=== PATIENT | male | born 1935 | race Caucasian/White ===

== ENCOUNTER 2017-04-30 21:39 | Inpatient (IN) | payer MEDICARE, BC ==
[~2017-04-30] VITALS: Ht 190.5 cm; Wt 65.9 kg
[2017-04-30 22:48] LABS: BASOPHILS 0.1 % (0-2); EOSINOPHILS 0.6 % (0-7); HEMATOCRIT 40.3 % (42.0-54.0); HEMOGLOBIN 13.1 g/dL (13.5-17.5); IMMATURE GRANULOCYTES 0.3 % (0-5); LYMPHOCYTES 7.9 % (15-50); MCH 27.8 pg (26.0-34.0); MCHC 32.5 g/dL (31.0-37.0); MCV 85.4 fL (80.0-100.0); MEAN PLATELET VOLUME 10.6 fL (7.4-10.4); MONOCYTES 7.7 % (2-11); NEUTROPHILS 83.4 % (40-80); PLATELET COUNT 188 10x3/uL (130-400); RBC 4.72 10x6/uL (4.20-6.10); RDW 14.6 % (11.5-14.5); WBC 6.9 10x3/uL (4.8-10.8)
[2017-04-30 23:15] LABS: ALKALINE PHOSPHATASE 62 U/L (46-116); ALT (SGPT) 16 U/L (10-68); BILIRUBIN - TOTAL 0.42 mg/dL (0.2-1.3); CALCIUM 8.7 mg/dL (8.5-10.1); CARBON DIOXIDE 32.2 mmol/L (21.0-32.0); CKMB 5.4 U/L (0.0-3.6); CREATINE KINASE 240 UL (21-232); GLUCOSE 157 mg/dL (74-106); PROTEIN - SERUM 6.2 g/dL (6.4-8.2); UREA NITROGEN 15 mg/dL (7-18); eGFR NON AFRICAN AMERICAN 76 mL/min (90-120)
[2017-04-30 23:16] LABS: TROPONIN-I < 0.017 ng/mL (0.000-0.060)
[2017-04-30 23:25] LABS: CALC OSMOLALITY 279 mosm/kg (275-300); CHLORIDE - SERUM 101 mmol/L (98-107); POTASSIUM - SERUM 3.8 mmol/L (3.5-5.1); SODIUM 138 mmol/L (136-145)
[2017-04-30 23:41] LABS: APPEARANCE CLEAR (CLEAR); BILIRUBIN NEGATIVE (NEGATIVE); COLOR STRAW (YELLOW); GLUCOSE 250 mg/dL (NEGATIVE); KETONE NEGATIVE (NEGATIVE); LEUKOCYTE ESTERASE NEGATIVE (NEGATIVE); NITRITE NEGATIVE (NEGATIVE); PROTEIN 1+ mg/dL (NEGATIVE); SPECIFIC GRAVITY 1.005 (1.005-1.020); UROBILINOGEN NORMAL (NORMAL)
[2017-04-30 23:44] LABS: BACTERIA FEW /hpf (NONE SEEN); EPITHELIAL CELLS 0-5 /hpf (0-5); RED CELLS - URINE 0-5 /hpf (0-5); WHITE CELLS - URINE 0-5 /hpf (0-5)
[2017-05-01] VITALS (9 sets, daily range): BP systolic 104–163; BP diastolic 45–72; Ht 190.5 cm; Wt 65.9 kg
--- NOTE | 2017-05-01 03:00 | NUR ---
PT RECEIVED TO ROOM CV2 FROM ER WITH DX OF HYPOGLEMIA AND ALTERED MENTAL STATUS. PT SITTING UP IN BED ALERT CHEERFUL AND ONLY MILD CONFUSION NOTED. FSBS JUST PRIOR TO TRANSPORTING TO CVICU 76. INITIAL ADMISSION ASSESSMENT AND HISTORY DONE. PT A FAIR HISTORIAN. PT ORIENTATED TO ROOM AND CALL LIGHT LEFT IN REACH. PT CONCERNED ABOUT WILL ATTEMPT TO CALL AND INFORM HER OF ADMISSION
--- NOTE | 2017-05-01 04:45 | NUR ---
SPOKE WITH [facility] AND OBTAINED EMERGENCY CONTACT INFORMATION. INFORMED PT SEES DR. FREDI DEVINE OF [facility] IN [place] [phone]. CALL PLACEDT TO JEYSON, OLDEST SON OF PT'S AND UPDATED HIM ON PT'S CONDITION. 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
--- NOTE | 2017-05-01 07:15 | NUR ---
REPORT RECIEVED FROM DISTRICT MANAGER PRIMARY CARE SALES NURSE. PT RESTING IN BED QUIETLY. NO S/SX OF ACUTE DISTRESS NOTED AT THIS TIME. VSS. FULL ASSESSMENT COMPLETE PER FLOWSHEET. CALL LIGHT IN REACH. BED IN LOW POSITION.
[2017-05-01 08:58] LABS: MAGNESIUM - SERUM 1.6 mg/dL (1.8-2.4)
--- NOTE | 2017-05-01 12:00 | NUR ---
AT BEDSIDE FOR VISITATION.
--- NOTE | 2017-05-01 13:00 | NUR ---
DIETARY AT BEDSIDE.
--- NOTE | 2017-05-01 16:30 | NUR ---
PT ASSISTED UP IN BED FOR DINNER. DINNER TRAY PLACED ON BEDSIDE TABLE. DENIES FURTHER NEEDS. WILL CONT TO ASSESS.
--- NOTE | 2017-05-01 18:00 | NUR ---
22G IV STARTED TO RIGHT FA. PT PULLED OUT PREVIOUS IV TO LEFT FA. CATH WAS INTACT.
--- NOTE | 2017-05-01 19:45 | NUR ---
RECIEVED PATIENT VIA WHEELCHAIR WITH NURSE FROM ICU. PATIENT HAS A VARGAS CATHETER. WITH ICU NURSE ON ONE SIDE AND MYSELF ON THE OTHER SIDE OF THE PATIENT, ASSISTED PATIENT AMBULATING FROM THE WHEELCHAIR TO THE BED. GAIT IS UNSTEADY. PATIENT STATED HE HAS TO URINATE, REMINDED PATIENT THAT HE HAS A VARGAS CATHETER AND SHOWED HIM THE URINE IN THE TUBING AND COLLECTION BAG. PATIENT VERBALIZED UNDERSTANDING. PATIENT IS DISORIENTED TO PLACE AND SITUATION. PATIENT DOES KNOW THE YEAR, AND THAT HE IS IN [place], WELL BEING ORIENTED TO SELF. PATIENT'S SPEECH IS CLEAR, AND HE TOLD ME STORIES OF HIS PAST WITH GREAT DETAIL. HE EXPLAINED WHY HIS SON MADE HIM AND HIS MOVE TO [place]. PATIENT DENIES PAIN AND NEEDS AT THIS TIME. PATIENT IS ON ROOM AIR. SHOWED PATIENT HOW TO USE THE CALL LIGHT, PATIENT DEMONSTRATED UNDERSTANDING. BED ALARM ON. REMINDED PATIENT NOT TO GET OUT OF THE BED WITHOUT ASSISTANCE. PATIENT VERBALIZED UNDERSTANDING. TURNED THE TV ON. PATIENT CHANGING THE CHANNELS. DOOR OPEN.
--- NOTE | 2017-05-01 23:21 | NUR ---
PATIENT IS RESTING QUIETLY WITH EYES CLOSED. BUILT-IN BED ALARM KEEPS MALFUNCTIONING AND GOING OFF WHILE PATIENT IS NOT EVEN MOVING IN THE BED, HE IS SLEEPING. ATTACHED A BOX ALARM TO PATIENT'S GOWN AND TURNED IT ON. TURNED OFF THE BUILT-IN BED ALARM.
[2017-05-02] VITALS (7 sets, daily range): BP systolic 100–167; BP diastolic 57–74
--- NOTE | 2017-05-02 00:50 | NUR ---
BOX ALARM WENT OFF, WENT IN ROOM, PATIENT SITTING UP ON THE SIDE OF THE BED. STATED HE IS GOING TO THE BATHROOM. WITH ASSIST FROM ANOTHER NURSE, ASSISTED PATIENT AMBULATING TO THE BATHROOM. PATIENT DID WELL, REQUIRING MINIMAL ASSIST. PATIENT SAT DOWN ON THE COMMODE AND STARTED TO MESS WITH THE CATHETER, ASKING "WHAT IS THIS DOWN HERE?" EXPLAINED TO PATIENT WHAT IT IS AND NOT TO TOUCH IT. PATIENT VERBALIZED UNDERSTANDING. PUT A BLAIR MAT ALARM ON PATIENT'S BED AND ATTACHED IT TO A GREEN BLAIR BOX ALARM. CHECKED FUNCTIONING, IT IS FUNCTIONING. THE OTHER NURSE REMAINED WITH PATIENT THEN SHE ASSISTED HIM BACK TO BED. HE DID NOT HAVE A BOWEL MOVEMENT. I WENT BACK IN THE ROOM WHEN PATIENT WAS BACK IN BED. I PUT A VARGAS CATHETER STAT LOCK ON LEFT LEG AND SECURED VARGAS CATHETER. BLAIR MAT ALARM IS ON. PATIENT STATED "SO NEXT TIME I NEED TO GET UP I JUST PUSH THIS BUTTON RIGHT HERE AND WAIT?" PATIENT HOLDING THE CALL LIGHT IN HIS HAND. I TOLD HIM HE IS CORRECT. ASSISTED PATIENT GETTING HIS HEARING AIDS TURNED OFF AND PUT THEM IN A NEW DENTURE CUP, PLACED THE DENTURE CUP ON THE NIGHTSTAND. PATIENT DENIES FURTHER NEEDS AT THIS TIME.
[2017-05-02 05:55] LABS: BASOPHILS 0.4 % (0-2); EOSINOPHILS 1.8 % (0-7); HEMATOCRIT 46.1 % (42.0-54.0); HEMOGLOBIN 15.2 g/dL (13.5-17.5); IMMATURE GRANULOCYTES 0.1 % (0-5); LYMPHOCYTES 18.7 % (15-50); MCH 28.5 pg (26.0-34.0); MCV 86.3 fL (80.0-100.0); MEAN PLATELET VOLUME 10.9 fL (7.4-10.4); PLATELET COUNT 197 10x3/uL (130-400); RBC 5.34 10x6/uL (4.20-6.10); WBC 6.8 10x3/uL (4.8-10.8)
[2017-05-02 06:21] LABS: CALC OSMOLALITY 281 mosm/kg (275-300); CALCIUM 8.8 mg/dL (8.5-10.1); CARBON DIOXIDE 28.5 mmol/L (21.0-32.0); CHLORIDE - SERUM 104 mmol/L (98-107); GLUCOSE 114 mg/dL (74-106); SODIUM 140 mmol/L (136-145); UREA NITROGEN 17 mg/dL (7-18); eGFR NON AFRICAN AMERICAN 76 mL/min (90-120)
[2017-05-02 06:30] LABS: POTASSIUM - SERUM 4.5 mmol/L (3.5-5.1)
--- NOTE | 2017-05-02 07:25 | NUR ---
ASSESSMENT PER FLOW SHEET.PT WITHOUT DISTRESS..FALL PREVENTION IN PLACE WITH BLAIR MAT ON AND FUNTIONING.DOOR OPEN TO MONITOR
[2017-05-02] MEDS ORDERED: BAYER CHEWABLE81 MG PO (16:21)
[2017-05-02] MEDS ORDERED: LOPRESSOR25 MG PO (16:21)
[2017-05-02] MEDS ORDERED: VITAMIN D250000 UNIT PO (16:22)
[2017-05-02] MEDS ORDERED: LOVASTATIN40 MG PO (16:23)
[2017-05-02] MEDS ORDERED: LISINOPRIL-HCTZ1 T13 PO (16:27)
[2017-05-02] MEDS ORDERED: GLYBURIDE2.5 MG PO (16:28)
--- NOTE | 2017-05-02 17:30 | NUR ---
CALL TO [facility] TASHIA TO CLARIFY METFORMIN DOSE. DOSE METFORMIN 1000 MG BID.
[2017-05-02] MEDS ORDERED: GLUCOPHAGE1000 MG PO (17:34)
[2017-05-02] MEDS ORDERED: PRILOSEC10 M1 PO (17:36)
[2017-05-02] MEDS ORDERED: ARICEPT5 MG PO (17:36)
[2017-05-02] MEDS ORDERED: FISH OIL 1,0001 CA1 PO (17:36)
--- NOTE | 2017-05-02 18:44 | NUR ---
REMIANS WITHOUT NEEDS,WITHOUT DISTSRESS. STILL HAS CONFUSION.WITHOUT CHANGE FROM INITIAL SHIFT ASSESSMENT.CONT PLAN OF CARE
--- NOTE | 2017-05-02 20:26 | NUR ---
FSBS 188 PAGED KODY LIND TO ADDRESS THE IVF.
--- NOTE | 2017-05-02 20:30 | NUR ---
SHE SAID TO STOP HIS IVF.
--- NOTE | 2017-05-02 20:40 | NUR ---
STOPPED IVF. FLUSHED IV WITH SALINE TO SALINE LOCK.
--- NOTE | 2017-05-02 22:15 | NUR ---
ASSISTED PATIENT UP TO THE BATHROOM. PATIENT SAT ON THE TOILET, PASSED GAS, NO STOOL. ASSISTED PATIENT BACK TO BED. BLAIR MAT ALARM ON. CALL LIGHT IN REACH. REMINDED PATIENT TO PUSH CALL LIGHT FOR ASSISTANCE. PATIENT VERBALIZED UNDERSTANDING. BED RAILS UP X'S 2. HEARING AIDS OUT, AND TURNED OFF, IN DENTURE CUP WITH LID ON SITTING ON NIGHT STAND.
[2017-05-03 00:19] VITALS: BP 148/65
--- NOTE | 2017-05-03 01:05 | NUR ---
PATIENT STOOD UP, BLAIR ALARM WENT OFF. OUTSOLES CHANNEL OPENER ENTERED ROOM AND INSTRUCTED PATIENT TO SIT BACK DOWN, I ENTERED RIGHT BEHIND HER. PATIENT SAT DOWN. PATIENT PULLED STAT LOCK OFF OF LEG. PATIENT STATED "I NEED TO GO PEE." TOLD PATIENT HE HAS A CATHETER. EXPLAINED TO PATIENT WHAT A VARGAS CATHETER IS AND HOW IT WORKS. SHOWED HIM HIS URINE IN THE COLLECTION BAG. PATIENT VERBALIZED UNDERSTANDING. PATIENT VERBALIZED THAT HE THOUGHT IT WAS MORNING, TOLD PATIENT IT IS 1AM. HE SAID "OH WELL I BETTER GET BACK TO SLEEP THEN."
--- NOTE | 2017-05-03 01:24 | NUR ---
PATIENT PUSHED CALL LIGHT, HE ASKED "CAN I PUT MY SHORTS ON WITH THOSE ON MY LEGS?" (TALKING ABOUT THE SCDS) I STATED "NO. REMEMBER IT IS NOT TIME TO GET DRESSED YET." HE STATED "OH YEAH THAT'S RIGHT. IT IS BEDTIME." CHECKED PATIENT'S BLOOD SUGAR, 99. GAVE PATIENT A CUP OF APPLE JUICE AND A COUPLE SANKET CRACKERS. HE SAT UP AND ATE HIS SNACK. NOW LAYING BACK DOWN. BLAIR MAT ALARM ON. CALL LIGHT IN REACH. BED RAILS UP X'S 2.
--- NOTE | 2017-05-03 03:31 | NUR ---
RESTING QUIETLY WITH EYES CLOSED. BLAIR MAT ALARM ON.
[2017-05-03 03:51] VITALS: BP 149/64
[2017-05-03 06:31] LABS: ALBUMIN 2.7 g/dL (3.4-5.0); ALKALINE PHOSPHATASE 58 U/L (46-116); ALT (SGPT) 16 U/L (10-68); BILIRUBIN - TOTAL 0.39 mg/dL (0.2-1.3); CALC OSMOLALITY 279 mosm/kg (275-300); CALCIUM 8.9 mg/dL (8.5-10.1); CARBON DIOXIDE 28.3 mmol/L (21.0-32.0); CHLORIDE - SERUM 103 mmol/L (98-107); CREATININE - SERUM 0.9 mg/dL (0.6-1.3); GLUCOSE 116 mg/dL (74-106); POTASSIUM - SERUM 4.2 mmol/L (3.5-5.1); PROTEIN - SERUM 6.1 g/dL (6.4-8.2); SODIUM 139 mmol/L (136-145); UREA NITROGEN 15 mg/dL (7-18); eGFR NON AFRICAN AMERICAN 86 mL/min (90-120)
[2017-05-03 07:09] LABS: BASOPHILS 0.6 % (0-2); EOSINOPHILS 2.1 % (0-7); HEMOGLOBIN 15.2 g/dL (13.5-17.5); IMMATURE GRANULOCYTES 0.1 % (0-5); LYMPHOCYTES 19.7 % (15-50); MCHC 34.5 g/dL (31.0-37.0); MEAN PLATELET VOLUME 11.1 fL (7.4-10.4); MONOCYTES 10.2 % (2-11); NEUTROPHILS 67.3 % (40-80); PLATELET COUNT 203 10x3/uL (130-400); RBC 5.06 10x6/uL (4.20-6.10); RDW 14.9 % (11.5-14.5); WBC 6.7 10x3/uL (4.8-10.8)
--- NOTE | 2017-05-03 07:20 | NUR ---
ASSESSMENT PER FLOW SHEET.PT WITHOUT DISTRESS.CONFUSION AT TIMES.REMAINS WITHOUT BREAKDOWN.FALL PEVENTION IN PLACE.
[2017-05-03 08:25] VITALS: BP 113/54
--- NOTE | 2017-05-03 11:31 | NUR ---
CM REASSESSMENT NOTE: PATIENT IS DISCHARGING BACK TO [place] TO [facility] TODAY BY PREETI RUST.
--- NOTE | 2017-05-03 12:03 | NUR ---
VARGAS DCD WITH 500 CC OF URINE IN BAG.URINAL TO PT.
[2017-05-03 12:21] VITALS: BP 118/61
--- NOTE | 2017-05-03 14:01 | NUR ---
HAS VOIDED 100CC OF URINE IN URINAL
--- NOTE | 2017-05-03 14:22 | NUR ---
CALL TO [facility],SPOKE WITH TASHIA
--- NOTE | 2017-05-03 15:49 | NUR ---
IV DCD WITH CATH INTACT.
--- NOTE | 2017-05-03 15:53 | NUR ---
STAFF HERE FROM [facility].PT LEFT UNIT VIA WHEELCHAIR FOR TRANSPORT TO [facility]
== END 2017-05-03 15:54 | disposition home or self-care (01) | DRG 639 ==
LOC: D.ER 21:39 → D.MS 05-01 01:00 → D.CVICU 05-01 01:00 → D.MS 05-01 19:53
PROVIDERS: Emergency Medicine; ADMIT Family Medicine
DX: E11.649 Type 2 diabetes mellitus with hypoglycemia without coma (principal); I10 Essential (primary) hypertension; R00.1 Bradycardia, unspecified; F03.90 Unspecified dementia, unspecified severity, without behavioral disturbance, psychotic disturbance, mood disturbance, and anxiety; Z79.4 Long term (current) use of insulin

== ENCOUNTER 2017-05-07 13:07 | Emergency (ER) | payer MEDICARE, BC ==
[2017-05-01 13:46] VITALS: BMI 17.1
[~2017-05-07 13:07] MED LIST: ARICEPT5 MG PO; BAYER CHEWABLE81 MG PO; FISH OIL 1,0001 CA1 PO; GLUCOPHAGE1000 MG PO; GLYBURIDE2.5 MG PO; LISINOPRIL-HCTZ1 T13 PO; LOPRESSOR25 MG PO; LOVASTATIN40 MG PO; PRILOSEC10 M1 PO; VITAMIN D250000 UNIT PO
[2017-05-07 15:13] LABS: BASOPHILS 0.6 % (0-2); EOSINOPHILS 0.8 % (0-7); HEMOGLOBIN 13.7 g/dL (13.5-17.5); IMMATURE GRANULOCYTES 0.2 % (0-5); LYMPHOCYTES 14.5 % (15-50); MCH 27.8 pg (26.0-34.0); MCHC 32.6 g/dL (31.0-37.0); MCV 85.4 fL (80.0-100.0); MEAN PLATELET VOLUME 10.3 fL (7.4-10.4); MONOCYTES 5.4 % (2-11); NEUTROPHILS 78.5 % (40-80); PLATELET COUNT 191 10x3/uL (130-400); RBC 4.92 10x6/uL (4.20-6.10); RDW 14.7 % (11.5-14.5); WBC 5.2 10x3/uL (4.8-10.8)
[2017-05-07 15:33] LABS: ALBUMIN 3.3 g/dL (3.4-5.0); ALKALINE PHOSPHATASE 77 U/L (46-116); ALT (SGPT) 16 U/L (10-68); CALC OSMOLALITY 290 mosm/kg (275-300); CALCIUM 8.8 mg/dL (8.5-10.1); CARBON DIOXIDE 33.6 mmol/L (21.0-32.0); CHLORIDE - SERUM 102 mmol/L (98-107); CREATININE - SERUM 1.2 mg/dL (0.6-1.3); GLUCOSE 149 mg/dL (74-106); POTASSIUM - SERUM 3.8 mmol/L (3.5-5.1); PROTEIN - SERUM 6.9 g/dL (6.4-8.2); SODIUM 142 mmol/L (136-145); UREA NITROGEN 27 mg/dL (7-18); eGFR NON AFRICAN AMERICAN 62 mL/min (90-120)
[2017-05-07 15:42] LABS: CHOL - HDL RATIO 2.2 ratio (2.3-4.9); CHOLESTEROL, TOTAL 138 mg/dL (0-200); CKMB 1.8 U/L (0.0-3.6); CREATINE KINASE 79 UL (21-232); HDL CHOLESTEROL 63 mg/dL (32-96); LDL CHOLESTEROL 58 mg/dL (0-100); LDL-HDL RATIO 0.9 ratio (1.5-3.5); TRIGLYCERIDE 86 mg/dL (30-200)
[2017-05-07 15:52] LABS: TROPONIN-I < 0.017 ng/mL (0.000-0.060)
== END 2017-05-07 16:34 | disposition home or self-care (01) ==
LOC: D.ER 13:07
PROVIDERS: Emergency Medicine
DX: I20.8 Other forms of angina pectoris (principal); R07.9 Chest pain, unspecified; R00.1 Bradycardia, unspecified; E11.9 Type 2 diabetes mellitus without complications; K21.9 Gastro-esophageal reflux disease without esophagitis; I10 Essential (primary) hypertension; Z85.828 Personal history of other malignant neoplasm of skin; R00.2 Palpitations; I44.7 Left bundle-branch block, unspecified

== ENCOUNTER 2017-05-17 12:18 | Observation (INO) | payer MEDICARE, BC ==
[~2017-05-17] VITALS: Ht 188 cm; Wt 80.0 kg
--- NOTE | ~2017-05-17 | HEMODYNAMI ---
PATIENT:DICK LARSON MEDICAL RECORD: [id number] : 37 LOCATION:[address] ADMISSION DATE: 05/17/17 Generatedon:05/18/20179:35 Patient name: DICK LARSON Patient #: [id number] SSN: : 1935 Date of study: 05/18/2017 Page: Of Hemodynamic Procedure Report Patient Data Patient Demographics Procedure consent was obtained First Name: DICK Gender: Male Last Name: MARSHA : 1935 Patient #: [id number] Age: 81 year(s) Race: Unknown Additional ID: [id number] Contact details Address: [address] [place] [address] State: [place] City: [facility] Zip code: [address] Past Medical History Allergies: No known allergies Admission Admission Data Admission Date: 05/17/2017 Admission Time: 15:50 Room #: 2123 Height (in.): 74 BSA: 2.06 (m2) Height (cm.): 187.96 BMI: 22.64 (kg/m2) Weight (lbs.): 176.37 Weight (kg.): 80 Lab Results Lab Result Date: 05/18/2017 Lab Result Time: 0:00 Biochemistry Name Units Result Min Max BUN mg/dl 27 --(----)-* 7 18 CK-MB ng/ml 2.1 --(--*-)-- 0 3.6 Creatinine mg/dl 1.4 --(----)*- 0.6 1.3 Creatinine l 84 --(-*--)-- 21 215 Kinase CBC Name Units Result Min Max Hemoglobin g/dl 13.1 -*(----)-- 13.5 17.5 Procedure Procedure Types Cath Procedure Diagnostic Procedure [facility] w/Coronaries Procedure Description Procedure Date Procedure Date: 05/18/2017 Procedure Start Time: 9:14 Procedure End Time: 9:34 Procedure Staff Name Function George Beckham MD Performing Physician Shahab Gillette RT Scrub Hector Willams RN Nurse Rocio Phillips RT Monitor Procedure Data Cath Procedure Fluoroscopy Diagnostic fluoroscopy Total fluoroscopy Time: 2.5 time: 2.5 min min Diagnostic fluoroscopy Total fluoroscopy dose: 356 dose: 356 mGy mGy Contrast Material Contrast Material Type Amount (ml) Isovue 300 54 Entry Location Entry Primary Successful Side Size Upsize Upsize Entry Closure Succes sful Closure Location (Fr) 1 (Fr) 2 (Fr) Remarks Device Remarks Femoral Right 4 Fr 5 Fr artery Estimated blood loss: 10 ml Diagnostic catheters Device Type Used For End Catheter Placement Cordis 5Fr JL 4.0 Catheter (MP) Cordis 5Fr 3DRC Catheter Procedure (MP) Cordis 5Fr Pigtail Ventriculography Catheter (MP) Procedure Complications No complications Procedure Medications Medication Administration Route Dosage Oxygen NC 2 l/min Lidocaine 2% added to field 20 Heparin Flush Bag added to field 2 bags (1000units/500ml NS) 0.9% NaCl I.V. 100 ml/hr Hemodynamics Rest BSA: 2.06 (m2) HGB: 13.1 (g/dl) O2 Consumption: Estimated: 222.83 (ml/min) O2 Co nsumption indexed: Estimated:108.17 (ml/min/m) Heart Rate: 54 (bpm) Pressure Samples Time Site Value (mmHg) Purpose Heart Use Rate(bpm) 9:16 AO 161/71(102) Snapshot 51 9:24 LV 179/17,25 EDP 37 9:25 LV 91/0,1 EDP 34 Gradients Valve Time Site Site Mean SEP/DFP Peak To Heart Use 1 2 (mmHg) (sec/min) Peak Rate (mmHg) (bpm) Aortic 9:26 LV AO 53 Aortic 9:27 LV AO 52 Snapshots Pre Cath Intra NCS Post Cath Vital Signs Time Heart Resp SPO2 etCO2 [id number] NIBP (mmHg) Rhythm Pain Sedation Rate (ipm) (%) (mmHg) (mmHg) Status Level (bpm) 9:02:18 55 16 99 0 0 Measuring SB 0 (11) 10(A) , No pain 9:09:14 48 16 98 0 0 155/65(133) SB 0 (11) 10(A) , No pain 9:13:36 79 15 98 0 0 139/65(129) SB 0 (11) 10(A) , No pain 9:18:06 55 13 98 0 0 149/67(112) SB 0 (11) 10(A) , No pain 9:22:26 51 17 98 0 0 152/66(99) SB 0 (11) 10(A) , No pain 9:26:46 52 17 97 0 0 150/66(126) SB 0 (11) 10(A) , No pain 9:31:07 47 17 97 0 0 132/60(117) SB 0 (11) 10(A) , No pain Medications Time Medication Route Dose Verified Delivered Reason Notes Effect iveness by by 9:04:39 Oxygen NC 2 George Buffie used for l/min Chap[place]ito Willams RN procedure MD 9:04:46 Lidocaine 2% added 20ml George George used for to vial [place] Beckham MD procedure field HINDS 9:04:53 Heparin Flush added 2 George George used for Bag to bags [place] Beckham MD procedure (1000units/500ml field HINDS NS) 9:05:05 0.9% NaCl I.V. 100 George Buffie Per ml/hr [place] Willams RN physician MD Procedure Log Time Note 8:25:36 Patient Weight : 176.37 kg 8:25:48 Patient Height : 74 cm 8:27:57 Lab Result : Creatinine Kinase 84 l 8:27:57 Lab Result : Hemoglobin 13.1 g/dl 8:27:57 Lab Result : CK-MB 2.1 ng/ml 8:27:57 Lab Result : BUN 27 mg/dl 8:27:57 Lab Result : Creatinine 1.4 mg/dl 8:28:52 Diagnostic Cath status Elective 8:28:55 Shahab Gillette RT(R) sent for patient. Start room use. 8:28:56 Time tracking: Regular hours 8:29:02 Plan of Care:Hemodynamics will remain stable., Cardiac rhythm will remain stable., Comfort level will be maintained., Respiratory function will remain adequate., Patient/ family verbilizes understanding of procedure., Procedure tolerated without complication., Recovers from procedure without complications.. 8:54:02 Patient received from PCU to CCL 1 Alert and oriented. Tansferred to table in Supine position. 8:54:03 Warm blankets applied, and alfredo hugger turned on for patient comfort. 8:54:04 Correct patient and procedure confirmed by team. 8:54:05 Signed procedure consent form obtained from patient. 8:54:06 ECG and BP/O2 sat monitors applied to patient. 9:00:29 Vital chart was started 9:02:16 Baseline sample Acquired. 9:02:19 Baseline sample Acquired. 9:02:25 Full Disclosure recording started 9:02:39 H&P Date Dictated: 05/17/2017 Within 30 days and on chart.. 9:02:42 Pre-procedure instructions explained to patient. 9:02:44 Family unavailable. 9:02:46 Patient NPO since Midnight. 9:02:55 Patient allergic to No known allergies 9:02:59 Is the patient allergic to Iodine/contrast media? No. 9:03:01 Is patient on blood thinner?Yes 9:03:04 ACC The patient was administered the following blood thiners within the last 24 hours: ACCPlavix 9:03:06 Patient diabetic? Yes. 9:03:07 If diabetic: On Metformin? Yes 9:03:10 If on Metformin: Last Dose? 05/17/2017 9:03:20 Snore? No 9:03:22 Sleep apnea? No 9:03:28 Dentures? No ? 9:04:13 IV patent on arrival in right hand with 0.9% NaCl at [facility]. 9:04:24 Lab results completed and on chart. 9:04:31 Right groin area was prepped with chlora-prep and draped in sterile fashion 9:04:33 Alarms reviewed by R. N. 9:04:37 Sharps counted by scrub and verified by R.N. 9:04:39 Oxygen 2 l/min NC was administered by Hector Willams RN; used for procedure; 9:04:42 Physician paged 9:04:45 Physician arrived 9:04:46 Lidocaine 2% 20ml vial added to field was administered by George Beckham MD; used for procedure; 9:04:46 --------ALL STOP TIME OUT------ 9:04:52 Final Timeout: patient, procedure, and site verified with staff and physician. All members of the team are in agreement. 9:04:53 Heparin Flush Bag (1000units/500ml NS) 2 bags added to field was administered by George Beckham MD; used for procedure; 9:04:55 Right groin site verified by team. 9:05:03 Sedation plan: IV Moderate Sedation Versed, Fentanyl 9:05:05 0.9% NaCl 100 ml/hr I.V. was administered by Hector Willams RN; Per physician; 9:05:15 Use device set Femoral Dx 9:05:17 Acist Syringe opened to sterile field. 9:05:18 Bag Decanter opened to sterile field. 9:05:18 Medline Cath Pack opened to sterile field. 9:05:19 Terumo 5Fr [place] Sheath opened to sterile field. 9:05:19 St Devaughn 260cm J .035 wire opened to sterile field. 9:05:21 Acist Hand Control opened to sterile field. 9:05:22 Acist Manifold opened to sterile field. 9:05:22 Diagnostic Infinity 5Fr Multipack catheter opened to sterile field. 9:05:22 Tegaderm 4 x 4 opened to sterile field. 9:13:44 Micropuncture VSI 4FR kit opened to sterile field. 9:13:48 Procedure started. 9:14:08 Local anesthetic to right femoral artery with Lidocaine 2% by George Beckham MD.INITIAL ACCESS ONLY 9:14:18 A 4 Fr sheath was inserted into the Right Femoral artery 9:14:25 Sheath upsized to a 5 Fr. 9:16:15 A Cordis 5Fr JL 4.0 Catheter (MP) was advanced over the wire and used for . 9:16:26 LCA angiography performed. 9:19:37 Catheter removed. 9:20:13 A Cordis 5Fr 3DRC Catheter (MP) was advanced over the wire and used for Procedure. 9:22:50 RCA angiography performed. 9:22:59 Catheter removed. 9:24:31 A Cordis 5Fr Pigtail Catheter (MP) was advanced over the wire and used for Ventriculography. 9:25:24 Zero performed for pressure channel P1 9:27:06 Catheter removed. 9:29:15 Cordis 5Fr Exoseal opened to sterile field. 9:29:51 Procedure ended.(Physican Out) 9:30:09 Fluoroscopy time 02.50 minutes. 9:30:52 Fluoroscopy dose: 356 mGy 9:30:52 Flurop Dose total: 356 9:30:59 Contrast amount:Isovue 300 54ml. 9:31:01 Sharps counted by scrub and verified by R.N. 9:32:15 Insertion/operative site no bleeding no hematoma. 9:32:19 Post-op/insertion site Right Femoral artery dressed using a 4 x 4 and Tegaderm. 9:32:23 Post right femoral artery:stable 9:32:28 Post Procedure Pulses reassessed and unchanged 9:32:42 Post procedure rhythm: unchanged. 9:32:45 Estimated blood loss: 10 ml 9:32:47 Post procedure instruction explained to patient.Patient verbalizes understanding. 9:33:02 Procedure type changed to Cath procedure, Diagnostic procedure, LHC, LHC w/Coronaries 9:33:30 Procedure and supply charges have been captured, reviewed, submitted and are correct. 9:33:54 Procedure Complication : No complications 9:34:00 Vital chart was stopped 9:34:11 See physician's report for complete and final results. 9:34:14 Report given to [facility]. 9:34:17 Patient transfered to [facility] with Bed. 9:34:19 Procedure ended. 9:34:19 Full Disclosure recording stopped 9:34:27 End room use (Document Last) Device Usage Item Name Manufacture Quantity Catalog Hospital Part Current Minimal Lot# / Number Charge Number Stock Stock Serial# Code Acist Syringe Acist 1 88031 723683 809380 593792 20 Medical Systems Inc Bag Decanter Microtek 1 2002S 061053 28882 097917 5 Medical Inc. Medline Cath Cardinal 1 [id number] 925523 14463 783820 5 Pack Health Terumo 5Fr Terumo 1 [id number] 114945 447405 780402 [address] Devaughn 1 860249 496402 768098 143106 30 J .035 wire Acist Hand Acist 1 96053 887745 926353 453258 5 Control Medical Systems Inc Acist Acist 1 98304 126909 823049 493654 5 Manifold Medical Systems Inc Diagnostic Cardinal 1 [id number] 282036 88719 286907 30 Infinity 5Fr Health Multipack catheter Tegaderm 4 x 3M 1 1626W 674709 082497 973121 5 4 Micropuncture VSI VASCULAR 1 7266V 049220 949675 5 VSI 4FR kit SOLUTIONS Cordis 5Fr JL Cardinal 1 725212 5 4.0 Catheter Health () Cordis 5Fr Cardinal 1 186943 5 3DRC Catheter Health () Cordis 5Fr Cardinal 1 963266 5 Pigtail Health Catheter () Cordis 5Fr Cardinal 1 EX500 640521 860078 939733 10 [facility] Health Signature Audit [place] Stage Time Signature Unsigned Intra-Procedure 05/18/2017 Rocio Phillips 9:35:06 AM RT(R) Signatures Monitor : Rocio Phillips Signature : RT Date : Time : [address] [place] [address]
[2017-05-17 13:12] LABS: ALBUMIN 3.4 g/dL (3.4-5.0); ALKALINE PHOSPHATASE 57 U/L (46-116); ALT (SGPT) 15 U/L (10-68); BILIRUBIN - TOTAL 0.68 mg/dL (0.2-1.3); CALC OSMOLALITY 279 mosm/kg (275-300); CALCIUM 8.8 mg/dL (8.5-10.1); CARBON DIOXIDE 29.5 mmol/L (21.0-32.0); CHLORIDE - SERUM 99 mmol/L (98-107); CREATININE - SERUM 1.4 mg/dL (0.6-1.3); GLUCOSE 111 mg/dL (74-106); POTASSIUM - SERUM 3.4 mmol/L (3.5-5.1); PROTEIN - SERUM 6.7 g/dL (6.4-8.2); SODIUM 137 mmol/L (136-145); UREA NITROGEN 27 mg/dL (7-18); eGFR NON AFRICAN AMERICAN 52 mL/min (90-120)
[2017-05-17 13:19] LABS: BASOPHILS 0.5 % (0-2); EOSINOPHILS 0.8 % (0-7); HEMATOCRIT 39.3 % (42.0-54.0); HEMOGLOBIN 13.1 g/dL (13.5-17.5); LYMPHOCYTES 24.4 % (15-50); MCH 27.8 pg (26.0-34.0); MCHC 33.3 g/dL (31.0-37.0); MCV 83.4 fL (80.0-100.0); MEAN PLATELET VOLUME 10.6 fL (7.4-10.4); MONOCYTES 14.3 % (2-11); PLATELET COUNT 178 10x3/uL (130-400); RBC 4.71 10x6/uL (4.20-6.10); RDW 14.3 % (11.5-14.5)
[2017-05-17 13:29] LABS: CKMB 2.1 U/L (0.0-3.6); CREATINE KINASE 84 UL (21-232); PRO BNP 5732 pg/mL (0-450)
[2017-05-17 13:34] LABS: TROPONIN-I < 0.017 ng/mL (0.000-0.060)
--- NOTE | 2017-05-17 17:00 | NUR ---
RECIVED FROM ER PER WC TO ROOM 2123. RN FOR ADMIT ASSESSMENT
[2017-05-17 17:07] VITALS: BP 144/89; Ht 188 cm; Wt 80.0 kg
[2017-05-17 20:00] VITALS: BP 143/32
[2017-05-18] VITALS: BP 150/49
[2017-05-18 04:00] VITALS: BP 134/57
--- NOTE | 2017-05-18 07:30 | NUR ---
ASSESSMENT COMPLETED. TELEMERTY SHOWS SB58. ON ROOM AIR. DENIES ANY NEEDS. NPO FOR CATH. SR UP WITH CALL LIGHT IN REACH
[2017-05-18 08:17] LABS: BASOPHILS 0.4 % (0-2); EOSINOPHILS 1.2 % (0-7); HEMATOCRIT 42.2 % (42.0-54.0); HEMOGLOBIN 14.3 g/dL (13.5-17.5); IMMATURE GRANULOCYTES 0.2 % (0-5); LYMPHOCYTES 17.3 % (15-50); MCH 27.9 pg (26.0-34.0); MCHC 33.9 g/dL (31.0-37.0); MCV 82.3 fL (80.0-100.0); MEAN PLATELET VOLUME 10.5 fL (7.4-10.4); MONOCYTES 11.1 % (2-11); NEUTROPHILS 69.8 % (40-80); PLATELET COUNT 179 10x3/uL (130-400); RBC 5.13 10x6/uL (4.20-6.10); RDW 14.1 % (11.5-14.5); WBC 4.9 10x3/uL (4.8-10.8)
[2017-05-18 08:33] LABS: ANION GAP 11.9 mmol/L (8-16); CALCIUM 8.9 mg/dL (8.5-10.1); CARBON DIOXIDE 30.6 mmol/L (21.0-32.0); CREATININE - SERUM 1.2 mg/dL (0.6-1.3); POTASSIUM - SERUM 3.5 mmol/L (3.5-5.1); TROPONIN-I 0.024 ng/mL (0.000-0.060)
--- NOTE | 2017-05-18 08:50 | NUR ---
TO AUTOMATED EQUIPMENT ENGINEER TECHNICIAN PER BED
--- NOTE | 2017-05-18 09:50 | NUR ---
BACK TO ROOM. V/S STABLE. DRSG TO RIGHT GROIN DRY AND INTACT. GROING SOFT. PPP. NON NEEDS VOICED. SR UP WITH CALL LIGHT IN REACH
[2017-05-18 12:00] VITALS: BP 149/75
--- NOTE | 2017-05-18 13:00 | NUR ---
POST OP CATH RESTING QUIETLY NAD NOTED
--- NOTE | 2017-05-18 15:14 | NUR ---
WALKED TO BATHROOM. GAIT STEADY. RIGHT GROINSOFT WITH DRSG DRY AND INTACT. READY TO BE DISCHARGED
[2017-05-18] MEDS ORDERED: COREG 3.1253.125 MG PO (16:27)
[2017-05-18] MEDS ORDERED: ISOSORBIDE MONO30 M1 PO (16:27)
--- NOTE | 2017-05-18 17:12 | NUR ---
LATE ENTRY 1630 PATIENT'S H/P IS PENDING. HE RESIDES AT THE [facility]. THERE IS NO ONE IN THE PATIENT'S ROOM AT THIS TIME. TC TO [place] [phone]. JANEL SPOKE WITH THE NURSE, GINGER. REPORT WAS CALLED TO GINGER BY PRIMARY NURSE, JAISON. D/C INSTRUCTIONS, D/C MED LIST AND CLINICAL PACKET PROVIDED. THE [facility] WILL BE PROVIDING TRANSPORTATION.
--- NOTE | 2017-05-18 17:56 | NUR ---
PT DISCHARGED. IV DCD WITH TIP INTACT. DRSG TO RIGHT GROIN SOFT. TO PRIVATE CAR PER WHEELCHAIR
--- NOTE | 2017-05-18 18:31 | EC ---
PATIENT:DICK LARSON DATE OF SERVICE: 05/17/17 SEX: M MEDICAL RECORD: [id number] DATE OF : 37 LOCATION:D.M2 D.212 AGE OF PATIENT: 81 ADMISSION DATE: 05/17/17 REFERRING PHYSICIAN: INTERPRETING PHYSICIAN: CAMILO BECKHAM MD ECHOCARDIOGRAM REPORT ECHO CHARGES 4 ECHO COMPLETE CLINICAL DIAGNOSIS: CP ECHOCARDIOGRAPHIC MEASUREMENTS (adult normal given) AC root (d.<3.7cm) 3.3 cm LV Septum d (<1.2 cm> 1.4 cm Valve Excursion 1.4 cm LV Septum (systole) 1.6 cm Left Atria (s.<4.0cm> 3.7 cm LVPW d(<1.2cm) 1.2 cm RV (d.<2.3cm) 3.2 cm LVPW (sytole) 1.6 cm LV diastole(<5.6CM) 6.5 cm MV E-F(>70mm/sec) cm LV systole 4.5 cm LVOT Diameter 2.0 cm MV exc.(>10mm) cm Est.ejection fraction (50-75%) % Pericardial Effusion N DOPPLER: LVIT cm/sec A 74.0 cm/sec E 44.0 cm/sec LA cm/sec RVSP 34.0 mmHg LVOT 78.0 cm/sec AOP1/2T 834.0m/s Asc. Ao 222 cm/sec RVOT 51.0 cm/sec RA cm/sec PA 54.0 cm/sec AV Gradient Peak 20.0 mmHg AV Mean 9.3 mmHg AV Area 1.2 cm MV Gradient Peak 3.4 mmHg MV Mean 0.82 mmHg MV Area cm COMMENTS: Fitness Technician: Jovanna JARAMILLOOE Patient'S Librarian: 4 Dr. Beckham TAPE# PACS DATE OF SERVICE: 05/18/2017 FINDINGS: 1. Left ventricle has complex wall motion abnormalities, much of it due to his dyssynchrony of his wall motion secondary to his bundle branch block. However, there is global hypokinesis. The overall ejection fraction is in the range of 30%-35% by echocardiography. The inflow characteristics are suggestive of diastolic dysfunction and the patient is relatively bradycardic during the exam. 2. The left atrium is dilated with an overall left atrial size of 4.2. 3. The aortic valve is sclerotic with mild aortic insufficiency. There is no ECHOCARDIOGRAM REPORT [id number] DICK LARSON evidence of significant stenosis. 4. The mitral valve is mildly thickened. There is mitral annular calcification. There is a [id number] mitral regurgitation. 5. The right atrium appears to be grossly normal. 6. The tricuspid valve is shown to have trace tricuspid regurgitation. The RVSP appears to be normal. 7. The inferior vena cava is slightly dilated; however, there is normal central venous pressure by echocardiography. 8. The pulmonic valve, although not well visualized, has mild pulmonic insufficiency. 9. The pericardium shows no significant pericardial effusion. IMPRESSION: Overall, the patient has systolic dysfunction with complex wall motion abnormalities contributed to possibility of prior infarction and also the possibility of contribution of asynchronous wall motion secondary to the his bundle branch block. The patient may be a candidate for more advanced therapies from a resynchronization viewpoint as well as defibrillator viewpoint. TRANSINT:[id number] Voice Confirmation ID: [id number] DOCUMENT ID: [id number] CAMILO BECKHAM MD at 1831 CC: [id number] DICTATION DATE: 05/18/17 1012 SPECIAL EDUCATION ASSISTANT: 05/18/17 1511 DIS IN 05/18/17 [facility] [address] [place] [address]
== END 2017-05-18 17:58 | disposition other institution (70) ==
LOC: D.ER 12:18 → D.M2 15:50 → OBSVTIME 15:50 → D.M2 05-18 17:58
PROVIDERS: Emergency Medicine; ADMIT Internal Medicine Cardiovascular Disease
DX: I25.10 Atherosclerotic heart disease of native coronary artery without angina pectoris (principal); Z95.5 Presence of coronary angioplasty implant and graft; F03.90 Unspecified dementia, unspecified severity, without behavioral disturbance, psychotic disturbance, mood disturbance, and anxiety; R00.1 Bradycardia, unspecified

== ENCOUNTER 2017-06-28 03:49 | Inpatient (IN) | payer MEDICARE, BC ==
[~2017-06-28] VITALS: Ht 188 cm; Wt 57.5 kg
--- NOTE | ~2017-06-28 | EC ---
PATIENT:DICK LARSON DATE OF SERVICE: 06/28/17 SEX: M MEDICAL RECORD: [id number] DATE OF : 37 LOCATION:D.M2 D.211 AGE OF PATIENT: 82 ADMISSION DATE: 06/28/17 REFERRING PHYSICIAN: INTERPRETING PHYSICIAN: CAMILO BECKHAM MD ECHOCARDIOGRAM REPORT ECHO CHARGES 5 ECHO LIMITED CLINICAL DIAGNOSIS: ECHOCARDIOGRAPHIC MEASUREMENTS (adult normal given) AC root (d.<3.7cm) 0 cm LV Septum d (<1.2 cm> 0 cm Valve Excursion 0 cm LV Septum (systole) 0 cm Left Atria (s.<4.0cm> 0 cm LVPW d(<1.2cm) 0 cm RV (d.<2.3cm) 0 cm LVPW (sytole) 0 cm LV diastole(<5.6CM) 0 cm MV E-F(>70mm/sec) 0 cm LV systole 0 cm LVOT Diameter 0 cm MV exc.(>10mm) 0 cm Est.ejection fraction (50-75%) % Pericardial Effusion N DOPPLER: LVIT 0 cm/sec A 0 cm/sec E 0 cm/sec LA 0 cm/sec RVSP 0 mmHg LVOT 0 cm/sec AOP1/2T 0 m/s Asc. Ao 0 cm/sec RVOT 0 cm/sec RA 0 cm/sec PA 0 cm/sec AV Gradient Peak 0 mmHg AV Mean 0 mmHg AV Area 0 cm MV Gradient Peak 0 mmHg MV Mean 0 mmHg MV Area 0 cm COMMENTS: LIMITED STUDY (2-D ONLY) Shipping And Receiving Associate: Jovanna JARAMILLOOE Freight Receiver: 4 Dr. Beckham TAPE# PACS DATE OF SERVICE: 07/01/2017 PROCEDURE: Limited left ventricular evaluation transthoracic echocardiogram FINDINGS: The left ventricular cavity appears to be dilated. The heart rate is slow and there are multiple pauses. There is global hypokinesis as well as mild left ventricular hypertrophy. There is a bundle branch block which is causing considerable dyssynchrony in the left ventricular cavity. Overall, ejection fraction appears to be 30% to 35%. ECHOCARDIOGRAM REPORT [id number] DICK LARSON TRANSINT:[id number] Voice Confirmation ID: [id number] DOCUMENT ID: [id number] CAMILO BECKHAM MD CC: [id number] DICTATION DATE: 07/01/17 0846 SAWMILL SUPERVISOR: 07/01/17 0943 ADM IN [facility] [address] [id number]
--- NOTE | ~2017-06-28 | HEMODYNAMI ---
PATIENT:DICK LARSON MEDICAL RECORD: [id number] : 37 LOCATION:[place] [id number] ADMISSION DATE: 06/28/17 Generatedon:07/01/201711:16 Patient name: DICK LARSON Patient #: [id number] SSN: : 1935 Date of study: 07/01/2017 Page: Of Hemodynamic Procedure Report Patient Data Patient Demographics Procedure consent was obtained First Name: DICK Gender: Male Last Name: MARSHA : 1935 Patient #: [id number] Age: 82 year(s) Race: Additional ID: [id number] Contact details Address: [address] [place] [address] State: [place] City: [facility] Zip code: [address] Past Medical History Allergies Allergen Reaction Date Comments Reported Other allergy 07/01/2017 [place] Admission Admission Data Admission Date: 06/28/2017 Admission Time: 5:29 Room #: [facility] Lab Results Lab Result Date: 07/01/2017 Lab Result Time: 0:00 Biochemistry Name Units Result Min Max BUN mg/dl 21 --(----)-* 7 18 Creatinine mg/dl 1 --(--*-)-- 0.6 1.3 CBC Name Units Result Min Max Hemoglobin g/dl 14.1 --(*---)-- 13.5 17.5 Procedure Procedure Types Cath Procedure Diagnostic Procedure PPM/ICD PPM Dual Implant Miscellaneous Procedures Moderate Sedation up to 15 minutes Procedure Description Procedure Date Procedure Date: 07/01/2017 Procedure Start Time: 10:32 Procedure End Time: 11:15 Procedure Staff Name Function George Beckham MD Performing Physician Hector Willams RN Nurse Julia Joseph RT Scrub Rocio Phillips RT Monitor Procedure Data Cath Procedure Fluoroscopy Diagnostic fluoroscopy Total fluoroscopy Time: 6.2 time: 6.2 min min Diagnostic fluoroscopy Total fluoroscopy dose: 68 dose: 68 mGy mGy Contrast Material Contrast Material Type Amount (ml) Visipaque 270 20 Estimated blood loss: 10 ml Procedure Complications No complications Procedure Medications Medication Administration Route Dosage Oxygen NC 2 l/min Ancef (1Gm/50ml NS) I.V.P.B 1 g Lidocaine 1% added to field 20 Heparin Flush Bag added to field 1 bags (1000units/500ml NS) Versed I.V. 2 mg Fentanyl I.V. 25 mcg Lopressor I.V. 2.5 mg Hemodynamics Rest HGB: 14.1 (g/dl) Heart Rate: 80 (bpm) Snapshots Pre Cath Intra NCS Post Cath Vital Signs Time Heart Resp SPO2 NIBP (mmHg) Rhythm Pain Sedation Rate (ipm) (%) Status Level (bpm) 10:14:59 75 17 99 147/95(123) NSR 0 (11) 10(A) , No pain 10:19:29 84 18 99 152/83(137) NSR 0 (11) 10(A) , No pain 10:23:57 74 18 99 154/71(107) NSR 0 (11) 10(A) , No pain 10:28:16 74 18 98 152/98(117) NSR 0 (11) 10(A) , No pain 10:33:25 68 13 100 149/87(103) NSR 0 (11) 10(A) , No pain 10:38:01 68 12 98 146/60(62) NSR 0 (11) 10(A) , No pain 10:42:24 67 13 98 145/76(115) NSR 0 (11) 10(A) , No pain 10:46:50 70 16 100 136/67(111) NSR 0 (11) 10(A) , No pain 10:51:59 87 14 97 129/83(110) NSR 0 (11) 10(A) , No pain 10:57:02 62 14 98 144/77(119) NSR 0 (11) 10(A) , No pain 11:01:28 66 17 99 132/40(83) NSR 0 (11) 10(A) , No pain 11:06:36 64 15 100 138/68(110) NSR 0 (11) 10(A) , No pain 11:10:58 63 17 100 138/82(124) NSR 0 (11) 10(A) , No pain 11:15:20 71 17 100 133/78(120) NSR 0 (11) 10(A) , No pain Medications Time Medication Route Dose Verified Delivered Reason Notes Eff ectiveness by by 10:14:57 Ancef (1Gm/50ml I.V.P.B 1 g George Buffie Per NS) [place] Willams RN physician 10:20:26 Oxygen NC 2 George Buffie used for l/min [place] Willams RN procedure 10:22:24 Lidocaine 1% added 20ml George George for local to vial [place] Beckham MD anesthetic field 10:22:31 Heparin Flush added 1 George George used for Bag to bags [place] Beckham MD procedure (1000units/500ml field NS) 10:27:46 Versed I.V. 2 mg George Buffie for [place] Willams RN sedation 10:27:52 Fentanyl I.V. 25 George Buffie for mcg [place] Willams RN sedation 10:54:28 Lopressor I.V. 2.5 George Buffie Per mg [place] Willams RN physician Procedure Log Time Note 8:20:39 Informed consent obtained and on chart 9:57:06 Diagnostic Cath Status : Elective 9:57:41 Hector Willams RN sent for patient. Start room use. 9:57:42 Time tracking: Regular hours 9:57:46 Plan of Care:Hemodynamics will remain stable., Cardiac rhythm will remain stable., Comfort level will be maintained., Respiratory function will remain adequate., Patient/ family verbilizes understanding of procedure., Procedure tolerated without complication., Recovers from procedure without complications.. 10:13:35 Patient received from Med II to CCL 3 Alert and oriented. Tansferred to table in Supine position. 10:13:37 Warm blankets applied, and alfredo hugger turned on for patient comfort. 10:13:37 Correct patient and procedure confirmed by team. 10:13:38 ECG and BP/O2 sat monitors applied to patient. 10:13:39 Vital chart was started 10:13:40 Baseline sample Acquired. 10:13:43 Baseline sample Acquired. 10:13:48 Baseline sample Acquired. 10:14:04 Full Disclosure recording started 10:14:13 H&P Date Dictated: 06/30/2017 Within 30 days and on chart.. 10:14:14 Pre-procedure instructions explained to patient. 10:14:24 Family unavailable. 10:14:27 Patient NPO since Midnight. 10:14:43 Patient allergic to Other allergyLithium 10:14:47 Is the patient allergic to Iodine/contrast media? No. 10:14:49 Is patient on blood thinner?No 10:14:52 Patient diabetic? Yes. 10:14:57 Ancef (1Gm/50ml NS) 1 g I.V.P.B was administered by Hector Willams RN; Per physician; 10:14:57 If diabetic: On Metformin? Yes 10:15:03 If on Metformin: Last Dose? 06/30/2017 10:15:10 Snore? Yes 10:15:11 Sleep apnea? No 10:15:19 Dentures? No ? 10:15:38 Airway obstruction? No ? 10:15:50 IV patent on arrival in right forearm with 0.9% NaCl at [facility]. 10:16:38 Lab Result : BUN 21 mg/dl 10:16:38 Lab Result : Creatinine 1 mg/dl 10:16:38 Lab Result : Hemoglobin 14.1 g/dl 10:16:43 Lab results completed and on chart. 10:16:49 Left chest area was prepped with chlora-prep and draped in sterile fashion 10:16:55 Sharps counted by scrub and verified by R.N. 10:16:56 Physician paged 10:17:24 Physician arrived 10:17:53 --------ALL STOP TIME OUT------ 10:17:54 Final Timeout: patient, procedure, and site verified with staff and physician. All members of the team are in agreement. 10:17:58 Left chest site verified by team. 10:18:04 Sedation plan: IV Moderate Sedation Versed, Fentanyl 10:18:10 Use device set Pacemaker Set 10:20:26 Oxygen 2 l/min NC was administered by Hector Willams RN; used for procedure; 10:22:24 Lidocaine 1% 20ml vial added to field was administered by George Beckham MD; for local anesthetic; 10:22:31 Heparin Flush Bag (1000units/500ml NS) 1 bags added to field was administered by George Beckham MD; used for procedure; 10:27:46 Versed 2 mg I.V. was administered by Buffie Willams RN; for sedation; 10:27:52 Fentanyl 25 mcg I.V. was administered by Hector Willams RN; for sedation; 10:32:38 Procedure started. 10:32:56 Local anesthetic to left sublavian artery with Lidocaine 1% by George Beckham MD.INITIAL ACCESS ONLY 10:33:57 Medtronic loss control representative Matt Lovett present for procedure. 10:35:30 Grounding pad site Right thigh. 10:35:33 Grounding pad site free from injury. 10:35:39 Lidocaine 1% to left subclavicular area by George Beckham MD. 10:35:42 Incision made to left subclavicular area. 10:36:02 Generator pocket made/opened. 10:40:15 Micro sheath to left subclavian to access vein 10:43:42 2-0 Vicryl Plus [id number] opened to sterile field. 10:43:49 2-0 Vicryl Plus [id number] opened to sterile field. 10:44:45 Stapler Skin 35W Proximate Plus opened to sterile field. 10:44:46 Cautery Tip Senior Sas Developer opened to sterile field. 10:44:52 Cautery Pushbutton Pencil opened to sterile field. 10:45:00 Immobilizer Sling Medium opened to sterile field. 10:45:07 Medtronic Advisa MRI PPM Dual Generator opened to sterile field. 10:45:08 Medtronic 4074-58 PPM Lead opened to sterile field. 10:45:08 Medtronic 5076-52 PPM Lead opened to sterile field. 10:45:09 Micropuncture VSI 4FR kit opened to sterile field. 10:45:13 Micropuncture VSI 4FR kit opened to sterile field. 10:45:15 STOPCOCK 3-WAY LARGE BORE opened to sterile field. 10:46:58 2.0 Ticron Multipack opened to sterile field. 10:46:59 2.0 Ticron Multipack opened to sterile field. 10:48:18 second micro sheath introduced into left subclavian vein 10:49:30 Pre sharps counted by scrub and verified by RN: Sutures: 5 Sponges: 5 Stick needles: 2 Skin needles: 4 Blade: 1 Cautery: 1 10:50:27 Left subclavian vein accessed with 7Fr Safe Sheath. 10:50:35 Ventricular lead inserted and advanced. 10:50:41 Left subclavian vein accessed with 7Fr Safe Sheath. 10:50:44 Atrial lead inserted and advanced. 10:53:13 Peel-a-way sheath was split and removed. 10:53:15 Peel-a-way sheath was split and removed. 10:53:34 Ventricular lead positioned. 10:53:41 Ventricular lead tested. 10:53:45 Atrial lead positioned. 10:53:48 Atrial lead tested. 10:54:28 Lopressor 2.5 mg I.V. was administered by Hector Willams RN; Per physician; 11:04:11 Atrial lead attachment was completed with 2-0 ticron. 11:04:17 Ventricular lead attachment was completed with 2-0 ticron. 11:04:27 PPM Dual was attached to lead(s) and inserted into pocket. 11:04:50 Subcutaneous closure was completed with 2-0 vicryl. 11:05:15 Skin closure was completed with 2-0 vicryl. 11:06:06 Parameters-- Generator: Mode: AAIR<=>DDDR. Lower Rate: 70bpm. Upper Rate: 110bpm. 11:06:48 Parameters--Ventricular P/R Wave: 12.6mV. Current: .2mA; Threshold: .3V; Impedence: 1141OHMS. 11:08:45 Parameters--Atrial P/R Wave: 2.8mV. Current: 1.0mA; Threshold: .6V; Impedence: 578OHMS. 11:10:26 EYE PAD PLACED OVER INCISION WITH TEGADERM 11:11:09 4X4 AND PRESSURE DRESSING OVER INCISION TO LEFT SUBCLAVIAN 11:11:37 Procedure ended.(Physican Out) 11:12:12 Fluoroscopy time 06.20 minutes. 11:12:18 Fluoroscopy dose: 68 mGy 11:12:18 Flurop Dose total: 68 11:12:59 Contrast amount:Visipaque 270 20ml. 11:13:06 Sharps counted by scrub and verified by R.N. 11:13:14 Insertion/operative site no bleeding no hematoma. 11:13:29 Post-op/insertion site Left Subclavian vein dressed using a 4 x 4 and Tegaderm. 11:13:39 Post left subclavian vein:stable 11:13:41 Post Procedure Pulses reassessed and unchanged 11:13:46 Post-procedure physical assessment completed. ASA score P 2 - A patient with mild systemic disease as per George Beckham MD. 11:13:57 Post procedure rhythm: paced 11:14:00 Estimated blood loss: 10 ml 11:14:08 Post procedure instruction explained to patient.Patient verbalizes understanding. 11:14:11 Patient needs reinforcement of post procedure teaching. 11:14:24 Procedure type changed to Cath procedure, Diagnostic procedure, PPM/ICD, PPM Dual Implant, Miscellaneous Procedures, Moderate Sedation up to 15 minutes 11:14:27 Procedure and supply charges have been captured, reviewed, submitted and are correct. 11:15:26 Procedure Complication : No complications 11:15:30 Vital chart was stopped 11:15:30 See physician's report for complete and final results. 11:15:36 Report given to [facility]. 11:15:39 Patient transfered to [facility] with Bed. 11:15:41 Procedure ended. 11:15:41 Full Disclosure recording stopped 11:15:44 End room use (Document Last) Device Usage Item Name Manufacture Quantity Catalog Hospital Part Current Minima l Lot# / Serial# Number Charge Number Stock Stock Code 2-0 Vicryl Ethicon 1 [id number] [id number] [id number] 5 Plus [id number] Stapler Skin Unknown 1 PMW35 [id number] [id number] [id number] 5 35W Proximate Plus Cautery Tip Microtek 1 [id number] [id number] 752874 859217 5 Senior Sas Developer [employer] Cautery Microtek 1 [id number] 100926 79870 074876 5 Pushbutton Medical Inc. Pencil Immobilizer Cardinal 1 [id number] 598916 068572 214587 5 ing [facility] Medtronic Medtronic 1 [id number] 853570 815199 5 Advisa MRI [id number] PPM Dual H EXP.11/03/2018 Generator Medtronic Medtronic 1 4074-58 176206 336193 5 4074-58 PPM [id number] EXP. Lead 04/15/2019 Medtronic Medtronic 1 5076-52 213590 621756 5 5076-52 PPM [id number] EXP Lead . 03/06/2019 Micropuncture VSI VASCULAR 2 7266V 344746 810799 5 VSI 4FR kit SOLUTIONS [facility] 1 [id number] 156066 4048 [id number] 5 3-WAY LARGE BORE 2.0 [facility]icron [facility] [id number] 298999 88743 866058 5 Multipack Signature Audit [place] Stage Time Signature Unsigned Intra-Procedure 07/01/2017 Rocio Phillips 11:16:21 AM RT(R) Signatures Monitor : Rocio Phillips Signature : RT Date : Time : [place] [id number] [facility] [place] [place] [address]
[~2017-06-28 03:49] MED LIST changes: +COREG 3.1253.125 MG PO; +ISOSORBIDE MONO30 M1 PO
[2017-06-28 04:28] LABS: BASOPHILS 0.6 % (0-2); EOSINOPHILS 2.5 % (0-7); HEMATOCRIT 37.4 % (42.0-54.0); HEMOGLOBIN 12.3 g/dL (13.5-17.5); IMMATURE GRANULOCYTES 0.2 % (0-5); MCH 28.4 pg (26.0-34.0); MCHC 32.9 g/dL (31.0-37.0); MCV 86.4 fL (80.0-100.0); MEAN PLATELET VOLUME 10.4 fL (7.4-10.4); MONOCYTES 9.9 % (2-11); NEUTROPHILS 69.8 % (40-80); PLATELET COUNT 155 10x3/uL (130-400); RBC 4.33 10x6/uL (4.20-6.10); RDW 15.8 % (11.5-14.5); WBC 4.8 10x3/uL (4.8-10.8)
[2017-06-28 04:52] LABS: ALBUMIN 3.2 g/dL (3.4-5.0); ALKALINE PHOSPHATASE 57 U/L (46-116); ALT (SGPT) 14 U/L (10-68); CALC OSMOLALITY 289 mosm/kg (275-300); CARBON DIOXIDE 30.3 mmol/L (21.0-32.0); CHLORIDE - SERUM 107 mmol/L (98-107); CREATININE - SERUM 0.9 mg/dL (0.6-1.3); GLUCOSE 123 mg/dL (74-106); POTASSIUM - SERUM 3.5 mmol/L (3.5-5.1); PROTEIN - SERUM 6.1 g/dL (6.4-8.2); SODIUM 144 mmol/L (136-145); UREA NITROGEN 18 mg/dL (7-18); eGFR NON AFRICAN AMERICAN 86 mL/min (90-120)
[2017-06-28 05:04] LABS: CKMB 0.6 U/L (0.0-3.6); CREATINE KINASE 58 UL (21-232); MAGNESIUM - SERUM 1.3 mg/dL (1.8-2.4); PRO BNP 23549 pg/mL (0-450); TROPONIN-I 0.041 ng/mL (0.000-0.060)
--- NOTE | 2017-06-28 05:56 | NUR ---
REPORT FROM PASCALE CASTRO.
[2017-06-28 08:00] VITALS: BP 99/63
[2017-06-28 08:25] VITALS: BP 99/63; BMI 17.8
[2017-06-28 11:00] VITALS: Ht 188 cm; Wt 57.5 kg
[2017-06-28 12:00] VITALS: BP 144/66
[2017-06-28 16:00] VITALS: BP 145/63
[2017-06-28 20:00] VITALS: BP 114/85
--- NOTE | 2017-06-28 20:10 | NUR ---
PT ON ELECTROLYTE PROTOCOL - MAGNESIUM TODAY WAS 1.3. MAGNESIUM TO BE REPLACED TONIGHT PER ELECTROLYTE PROTOCOL, MAGNESIUM 2 GM IVPB STARTED, INFUSING @ 25 CC/HR. WILL REPEAT X1 AFTER COMPLETION OF THIS MAG RIDER. PT UPDATED ON POC AND VERBALIZED UNDERSTANDING.
--- NOTE | 2017-06-28 22:39 | NUR ---
PT RESTING WELL WITHOUT C/O OR DISTRESS NOTED. NO NEEDS VOICED. CALL LIGHT WITHIN REACH. WILL CONT TO MONITOR.
[2017-06-29] VITALS: BP 138/69
--- NOTE | 2017-06-29 02:09 | NUR ---
PT RESTING WELL WITHOUT C/O OR DISTRESS NOTED. CALL LIGHT WITHIN REACH. WILL CONT TO MONITOR.
[2017-06-29 04:00] VITALS: BP 104/71
[2017-06-29 05:31] LABS: BASOPHILS 0.5 % (0-2); EOSINOPHILS 1.3 % (0-7); HEMATOCRIT 40.4 % (42.0-54.0); HEMOGLOBIN 13.4 g/dL (13.5-17.5); IMMATURE GRANULOCYTES 0.2 % (0-5); LYMPHOCYTES 15.4 % (15-50); MCH 29.5 pg (26.0-34.0); MCHC 33.2 g/dL (31.0-37.0); MEAN PLATELET VOLUME 11.4 fL (7.4-10.4); MONOCYTES 11.3 % (2-11); NEUTROPHILS 71.3 % (40-80); RBC 4.54 10x6/uL (4.20-6.10); RDW 15.7 % (11.5-14.5)
[2017-06-29 05:32] LABS: PLATELET COUNT 208 10x3/uL (130-400); WBC 6.3 10x3/uL (4.8-10.8)
[2017-06-29 06:05] LABS: ANION GAP 9.3 mmol/L (8-16); CARBON DIOXIDE 34.1 mmol/L (21.0-32.0); CREATININE - SERUM 1.1 mg/dL (0.6-1.3); POTASSIUM - SERUM 3.4 mmol/L (3.5-5.1)
[2017-06-29 06:06] LABS: MAGNESIUM - SERUM 2.4 mg/dL (1.8-2.4)
--- NOTE | 2017-06-29 06:17 | NUR ---
PT MAGNESIUM RESULTED 2.4 THIS AM. NO FURTHER INTERVENTION REQUIRED. HOWEVER, PT'S POTASSIUM RESULTS 3.4 - AWAITING PHARMACY TO RESTOCK PYXIS TO TREAT HYPOKALEMIA. WILL INCLUDE IN SBAR TO DAY SHIFT NURSE THIS AM.
--- NOTE | 2017-06-29 07:30 | NUR ---
RESTING QUIETLY IN BED AAOX2 SELF AND PLACE RESP UNLABORED NAD NOTED
[2017-06-29 08:21] VITALS: BP 150/66
[2017-06-29 12:19] VITALS: BP 97/70
[2017-06-29 20:00] VITALS: BP 131/58
--- NOTE | 2017-06-29 20:30 | NUR ---
PT BECOMES INCREASINGLY CONFUSED AND ANXIOUS. REPORTS BEING WORRIED ABOUT HIS SPOUSE AND WORRIED ABOUT PAYING THE BILL. PT GIVEN MUCH REASSURANCE WITH NO CHANGE IN PT ANXIETY. CALL TO JEYSON, PT'S SON. NURSE EXPLAINS ISSUE TO PT'S SON AND HIS SON AGREES TO SPEAK WITH THE PT VIA PHONE. AFTER PHONE CONVERSATION, PT LESS ANXIOUS AND ASSISTED BACK TO ROOM. BLAIR BED ALARM SET. WILL MONITOR.
--- NOTE | 2017-06-29 22:30 | NUR ---
PT ASSISTED UP TO CHAIR. STATES NOT WANTING TO LAY IN THE BED. MOMENTS LATER PT FOUND TO BE IN ANOTHER PT'S ROOM, IN THE BATHROOM. ONCE AGAIN, ASSISTED BACK TO BED. BLAIR ALARM ON. SPOKE WITH HOUSE SUP RE: ORDER TO HELP PT WITH ANXIETY AND TO REST. AWAITING ORDERS.
[2017-06-30] VITALS: BP 130/49
--- NOTE | 2017-06-30 00:30 | NUR ---
RECEIVED ORDER FOR ATIVAN 1 MG IM FOR ANXIETY. PT RESTING AT THIS TIME AND NOT GIVEN.
--- NOTE | 2017-06-30 01:09 | NUR ---
BED ALARM SOUNDS, PT ATTEMPTING TO WALK INTO ANOTHER PT'S ROOM. ATIVAN 1 MG IM GIVEN LEFT VG AFTER BEING ASSISTED BACK TO ROOM AND INTO BED.
--- NOTE | 2017-06-30 02:00 | NUR ---
PT RESTING SOUNDLY, SB ON MONITOR HR 50'S. EYES CLOSED AND RESP EVEN AND UNLABORED. WILL CONT TO MONITOR.
--- NOTE | 2017-06-30 04:23 | NUR ---
PT CONT TO REST WELL AT THIS TIME WITHOUT C/O OR DISTRESS NOTED. WILL MONITOR.
--- NOTE | 2017-06-30 05:15 | NUR ---
IV TO LEFT AC OUT. FOUND WITH CATH TIP INTACT, LAYING IN BED WITH PT. RESITED TO RIGHT WRIST WITH 20 GA ANGIOCATH X1 STICK. BED BATH COMPLETED AND LINEN CHANGE. PT INCONT URINE. ANIYA CARE COMPLETED. WILL MONITOR.
[2017-06-30 05:26] LABS: BASOPHILS 0.5 % (0-2); EOSINOPHILS 1.5 % (0-7); HEMATOCRIT 41.1 % (42.0-54.0); HEMOGLOBIN 13.5 g/dL (13.5-17.5); LYMPHOCYTES 19.7 % (15-50); MCH 28.8 pg (26.0-34.0); MCHC 32.8 g/dL (31.0-37.0); MCV 87.6 fL (80.0-100.0); MEAN PLATELET VOLUME 10.9 fL (7.4-10.4); MONOCYTES 14.3 % (2-11); PLATELET COUNT 182 10x3/uL (130-400); RBC 4.69 10x6/uL (4.20-6.10); RDW 15.6 % (11.5-14.5); WBC 5.5 10x3/uL (4.8-10.8)
[2017-06-30 05:35] LABS: CALC OSMOLALITY 282 mosm/kg (275-300); CARBON DIOXIDE 34.6 mmol/L (21.0-32.0); CHLORIDE - SERUM 100 mmol/L (98-107); GLUCOSE 128 mg/dL (74-106); POTASSIUM - SERUM 3.2 mmol/L (3.5-5.1); SODIUM 140 mmol/L (136-145); UREA NITROGEN 19 mg/dL (7-18); eGFR NON AFRICAN AMERICAN 76 mL/min (90-120)
[2017-06-30 05:55] VITALS: BP 143/62
--- NOTE | 2017-06-30 07:30 | NUR ---
RESTING QUIETLY WITH EYES CLOSED AROUSES TO VOICE WHEN NAME CALLED RESP UNLABORED POSY ALARM ON BED IN LOW POSITION CALL LIGHT REACH WILL CONTINUE TO MONITOR
[2017-06-30 08:00] VITALS: BP 155/60
--- NOTE | 2017-06-30 08:30 | NUR ---
CALLED TO PT ROOM PT WAS FOUND LYING IN FLOOR ON LT SIDE BY MARIIA WELLS RN STATED BLAIR ALARM GOING OFF WENT TO ROOM URINE NOTED IN FLOOR PT ASSISTED BACK TO BED NO INJURY NOTED EXCEPT SMALL RED AREA ON MID FOREHEAD WITH ABRASED AREA NOTED VS TAKEN PT DR NUPUR HINES BATHED AND LINENS CHANGED PT ASSISTED WITH BREAKFAST BY STAFF WILL CONTINUE TO MONITOR
--- NOTE | 2017-06-30 09:15 | NUR ---
SON JEYSON LARSON RETURNED CALL AND WAS NOTIFIED OF PT HAVING A FALL
[2017-06-30 12:00] VITALS: BP 140/63
--- NOTE | 2017-06-30 12:00 | NUR ---
PT EATING LUNCH AT THIS TIME NAD NOTED
[2017-06-30 16:00] VITALS: BP 130/73
[2017-06-30 20:00] VITALS: BP 131/86
[2017-07-01] VITALS: BP 141/70
--- NOTE | 2017-07-01 02:08 | NUR ---
PT RESTING WITH EYES CLSED AND RESP EVEN UNLABORED. CALL LIGHT WITHIN REACH. NO NEEDS VOICED. WILL CONT TO MONITOR.
[2017-07-01 04:00] VITALS: BP 140/76
[2017-07-01 05:39] LABS: BASOPHILS 0.6 % (0-2); EOSINOPHILS 1.4 % (0-7); HEMATOCRIT 42.9 % (42.0-54.0); HEMOGLOBIN 14.1 g/dL (13.5-17.5); IMMATURE GRANULOCYTES 0.2 % (0-5); LYMPHOCYTES 22.5 % (15-50); MCH 28.4 pg (26.0-34.0); MCHC 32.9 g/dL (31.0-37.0); MCV 86.5 fL (80.0-100.0); MEAN PLATELET VOLUME 10.6 fL (7.4-10.4); MONOCYTES 11.3 % (2-11); PLATELET COUNT 192 10x3/uL (130-400); RBC 4.96 10x6/uL (4.20-6.10); RDW 15.5 % (11.5-14.5); WBC 4.9 10x3/uL (4.8-10.8)
[2017-07-01 06:06] LABS: CALC OSMOLALITY 282 mosm/kg (275-300); CALCIUM 9.3 mg/dL (8.5-10.1); CARBON DIOXIDE 30.8 mmol/L (21.0-32.0); CHLORIDE - SERUM 101 mmol/L (98-107); GLUCOSE 140 mg/dL (74-106); POTASSIUM - SERUM 3.9 mmol/L (3.5-5.1); SODIUM 139 mmol/L (136-145); UREA NITROGEN 21 mg/dL (7-18); eGFR NON AFRICAN AMERICAN 76 mL/min (90-120)
[2017-07-01 08:00] VITALS: BP 124/60
--- NOTE | 2017-07-01 10:05 | NUR ---
LEAVING TO PHARMACY BILLING ADJUDICATOR FOR PACEMAKER BY BED. WILL MONITOR.
--- NOTE | 2017-07-01 11:42 | NUR ---
BACK FROM ELECTRICAL INSTRUMENT MAKER. VS WNL. LEFT CHEST CLEAN AND DRY. LEFT ARM IN SLING. WILL CONT. TO MONITOR.
[2017-07-01 12:00] VITALS: BP 132/74
[2017-07-01 16:00] VITALS: BP 120/60
[2017-07-01 20:51] VITALS: BP 152/78
[2017-07-02 01:15] VITALS: BP 132/74
[2017-07-02 05:51] LABS: BASOPHILS 0.8 % (0-2); EOSINOPHILS 1.5 % (0-7); HEMATOCRIT 47.4 % (42.0-54.0); HEMOGLOBIN 15.6 g/dL (13.5-17.5); IMMATURE GRANULOCYTES 0.2 % (0-5); LYMPHOCYTES 22.2 % (15-50); MCH 28.5 pg (26.0-34.0); MCHC 32.9 g/dL (31.0-37.0); MCV 86.5 fL (80.0-100.0); MEAN PLATELET VOLUME 10.6 fL (7.4-10.4); MONOCYTES 9.8 % (2-11); NEUTROPHILS 65.5 % (40-80); RBC 5.48 10x6/uL (4.20-6.10); RDW 15.3 % (11.5-14.5)
[2017-07-02 06:06] LABS: PLATELET COUNT 244 10x3/uL (130-400); WBC 6.5 10x3/uL (4.8-10.8)
[2017-07-02 06:10] LABS: ANION GAP 8.1 mmol/L (8-16); CALCIUM 9.8 mg/dL (8.5-10.1); CARBON DIOXIDE 35.4 mmol/L (21.0-32.0); CREATININE - SERUM 1.3 mg/dL (0.6-1.3); POTASSIUM - SERUM 3.5 mmol/L (3.5-5.1)
[2017-07-02 08:00] VITALS: BP 124/64
--- NOTE | 2017-07-02 10:15 | NUR ---
TELEMETRY SR. PACEMAKER DRSG CLEAN AND DRY. BED ALARM ON WITH CALL LIGHT IN REACH. WILL CONT. PLAN OF CARE.
--- NOTE | 2017-07-02 12:33 | NUR ---
Patient Name: DICK LARSON Admission Status: ER Accout number: [id number] Admission Date: 06-28-2017 : 1935 Admission Diagnosis: Attending: PAYAL ESPITIA Current LOS: 4 Anticipated DC Date: 07-02-2017 Planned Disposition: Assisted Living Primary Insurance: MEDICARE A & B PLANNED EXTERNAL PROVIDER: [facility] Discharge Planning Comments: * Is the patient Alert and Oriented? Yes 0 * How many steps to enter\\exit or inside your home? NONE 0 * PCP ULI BONE 0 * Pharmacy [facility] 0 * Preadmission Environment Assisted Living 0 * Facility Name [facility] 0 * ADLs Partial Dependent 0 * Partial ADLs (Assistance needed) Medication Management 0 * Equipment None 0 * Other Equipment NO MEDICAL EQUIPMENT PROVIDER PREFERENCE 0 * List name and contact numbers for known caregivers / representatives who currently or will assist patient after discharge: JOSELYN VINSON, 0 * Community resources currently utilized None 0 * Please name any agencies selected above. NONE 0 * Additional services required to return to the preadmission environment? No 0 * Can the patient safely return to the preadmission environment? Yes 0 * Has this patient been hospitalized within the prior 30 days at any hospital? No 0 CM MET WITH PT IN ROOM TO DISCUSS DISCHARGE PLANNING AND NEEDS. PT REPORTS LIVING AT [facility], "[facility]", THE ONE JUST UP THE STRE[address] FROM HERE. PT REPORTS HIS LIVES THERE TOO. PT REPORTS HAVING ASSISTANCE WITH MEDICATIONS, MEALS AND TRANSPORTATION SERVICES. PT HAS NO MEDICAL EQUIPMENT AND NO PROVIDER PREFERENCE. CM DISCUSSED AVAILABILITY OF HOME HEALTH, REHAB SERVICES AND MEDICAL EQUIPMENT. PT DENIES DISCHARGE NEEDS, REPORTS [facility] WILL PICK HIM UP FOR DISCHARGE HOME WITH NO NEED TO CALL ANYONE ELSE. PT REPORTS HAVING CLOTHES AND ONLY NEEDS HIS WALLET FROM THE HOSPITAL SAFE. PT REPORTS ABILITY TO WALK AND GET UP AND DOWN OUT OF BED WITHOUT ASSISTANCE. CM CALLED [facility], , SPOKE TO TASHIA WHO STATES NURSE REPORT CAN BE CALLED TO HER AND TRANSPORATION WILL BE ARRANGED; NURSE TO SEND DISCHARGE INFORMATION WITH PT WHEN HE GOES BACK TO [facility]. CM PROVIDED INFORMATION TO BEDSIDE NURSE. IMPORTANT MESSAGE FROM MEDICARE PROVIDED AND EXPLAINED. NURSE REPORT TO BE CALLED TO [facility] AT [phone]; [facility] TO ARRANGE TRANSPORTATION SERVICES FOR PT'S RETURN TO FACILITY TODAY. Quality Improvement Manager: Ulises Muñoz
[2017-07-02] MEDS ORDERED: KEFLEX500 MG PO (12:34)
--- NOTE | 2017-07-02 13:28 | NUR ---
IV AND TELEMETRY DCD. DC PLANS CALLED TO [place]. UNDERSTANDING VOICED.
[2017-07-02 16:00] VITALS: BP 92/53
--- NOTE | 2017-07-02 16:11 | NUR ---
ESCORTED TO CAR BY W/C.
== END 2017-07-02 16:12 | disposition home or self-care (01) | DRG 242 ==
LOC: D.ER 03:49 → D.M2 05:29
PROVIDERS: Emergency Medicine; Internal Medicine Cardiovascular Disease; ADMIT Family Medicine
PROC: 02H63JZ Insertion of Pacemaker Lead into Right Atrium, Percutaneous Approach (ICD-10-PCS; 2017-07-01)
PROC: 02HK3JZ Insertion of Pacemaker Lead into Right Ventricle, Percutaneous Approach (ICD-10-PCS; 2017-07-01)
PROC: 0JH606Z Insertion of Pacemaker, Dual Chamber into Chest Subcutaneous Tissue and Fascia, Open Approach (ICD-10-PCS; principal; 2017-07-01 12:00)
DX: I49.5 Sick sinus syndrome (principal); I50.23 Acute on chronic systolic (congestive) heart failure; I25.10 Atherosclerotic heart disease of native coronary artery without angina pectoris; I42.9 Cardiomyopathy, unspecified; I11.0 Hypertensive heart disease with heart failure; E11.9 Type 2 diabetes mellitus without complications; E78.5 Hyperlipidemia, unspecified; F03.90 Unspecified dementia, unspecified severity, without behavioral disturbance, psychotic disturbance, mood disturbance, and anxiety; K21.9 Gastro-esophageal reflux disease without esophagitis; R41.0 Disorientation, unspecified; W19.XXXA Unspecified fall, initial encounter

== ENCOUNTER 2017-07-04 09:57 | Emergency (ER) | payer MEDICARE, BC ==
[2017-06-28 11:00] VITALS: BMI 17.7
[~2017-07-04 09:57] MED LIST changes: +KEFLEX500 MG PO
[2017-07-04 10:35] LABS: BASOPHILS 0.9 % (0-2); EOSINOPHILS 1.9 % (0-7); HEMATOCRIT 37.3 % (42.0-54.0); HEMOGLOBIN 12.2 g/dL (13.5-17.5); LYMPHOCYTES 12.2 % (15-50); MCH 28.2 pg (26.0-34.0); MCHC 32.7 g/dL (31.0-37.0); MCV 86.3 fL (80.0-100.0); MEAN PLATELET VOLUME 10.3 fL (7.4-10.4); MONOCYTES 13.5 % (2-11); NEUTROPHILS 71.5 % (40-80); RBC 4.32 10x6/uL (4.20-6.10); RDW 15.4 % (11.5-14.5); WBC 4.7 10x3/uL (4.8-10.8)
[2017-07-04 10:49] LABS: ALBUMIN 3.4 g/dL (3.4-5.0); ALKALINE PHOSPHATASE 61 U/L (46-116); ALT (SGPT) 13 U/L (10-68); CALC OSMOLALITY 291 mosm/kg (275-300); CALCIUM 9.4 mg/dL (8.5-10.1); CARBON DIOXIDE 32.6 mmol/L (21.0-32.0); CHLORIDE - SERUM 99 mmol/L (98-107); CREATININE - SERUM 1.8 mg/dL (0.6-1.3); GLUCOSE 177 mg/dL (74-106); POTASSIUM - SERUM 4.1 mmol/L (3.5-5.1); PROTEIN - SERUM 6.4 g/dL (6.4-8.2); SODIUM 138 mmol/L (136-145); UREA NITROGEN 47 mg/dL (7-18); eGFR NON AFRICAN AMERICAN 39 mL/min (90-120)
[2017-07-04 10:54] LABS: PLATELET COUNT 188 10x3/uL (130-400)
[2017-07-04 10:59] LABS: CHOL - HDL RATIO 2.3 ratio (2.3-4.9); CHOLESTEROL, TOTAL 158 mg/dL (0-200); CKMB 0.7 U/L (0.0-3.6); CREATINE KINASE 56 UL (21-232); HDL CHOLESTEROL 69 mg/dL (32-96); LDL CHOLESTEROL 77 mg/dL (0-100); LDL-HDL RATIO 1.1 ratio (1.5-3.5); TRIGLYCERIDE 62 mg/dL (30-200); TROPONIN-I < 0.017 ng/mL (0.000-0.060)
== END 2017-07-04 12:34 | disposition home or self-care (01) ==
LOC: D.ER 09:57
PROVIDERS: Emergency Medicine
DX: R07.9 Chest pain, unspecified (principal); N17.9 Acute kidney failure, unspecified; E86.0 Dehydration; E11.9 Type 2 diabetes mellitus without complications; K21.9 Gastro-esophageal reflux disease without esophagitis; I10 Essential (primary) hypertension; Z95.0 Presence of cardiac pacemaker; I44.7 Left bundle-branch block, unspecified

== ENCOUNTER 2017-07-28 09:04 | Inpatient (IN) | payer MEDICARE, BC ==
[2017-07-28 09:33] LABS: BASOPHILS 0 % (0-2); EOSINOPHILS 0 % (0-7); HEMATOCRIT 42.7 % (42.0-54.0); HEMOGLOBIN 14.2 g/dL (13.5-17.5); IMMATURE GRANULOCYTES 0.4 % (0-5); LYMPHOCYTES 6.3 % (15-50); MCH 28.7 pg (26.0-34.0); MCHC 33.3 g/dL (31.0-37.0); MCV 86.3 fL (80.0-100.0); MEAN PLATELET VOLUME 11.4 fL (7.4-10.4); MONOCYTES 5.2 % (2-11); NEUTROPHILS 88.1 % (40-80); PLATELET COUNT 181 10x3/uL (130-400); RBC 4.95 10x6/uL (4.20-6.10); RDW 15.6 % (11.5-14.5)
[2017-07-28 09:45] LABS: ALBUMIN 3.4 g/dL (3.4-5.0); ALKALINE PHOSPHATASE 130 U/L (46-116); ALT (SGPT) 79 U/L (10-68); BILIRUBIN - TOTAL 0.63 mg/dL (0.2-1.3); CALC OSMOLALITY 295 mosm/kg (275-300); CALCIUM 9.6 mg/dL (8.5-10.1); CARBON DIOXIDE 25.2 mmol/L (21.0-32.0); CHLORIDE - SERUM 104 mmol/L (98-107); CREATININE - SERUM 1.4 mg/dL (0.6-1.3); GLUCOSE 280 mg/dL (74-106); POTASSIUM - SERUM 4.9 mmol/L (3.5-5.1); PROTEIN - SERUM 6.9 g/dL (6.4-8.2); SODIUM 140 mmol/L (136-145); UREA NITROGEN 32 mg/dL (7-18); eGFR NON AFRICAN AMERICAN 52 mL/min (90-120)
[2017-07-28 10:00] LABS: CKMB 3.4 U/L (0.0-3.6); CREATINE KINASE 85 UL (21-232)
[2017-07-28 10:05] LABS: TROPONIN-I 0.168 ng/mL (0.000-0.060)
[2017-07-28 10:21] LABS: PRO BNP 100558 pg/mL (0-450)
--- NOTE | 2017-07-28 13:09 | NUR ---
RECEIVED REPORT FROM ER FOR PATIENT.
--- NOTE | 2017-07-28 14:33 | NUR ---
RECEIVED PATIENT TO ROOM [address] [facility] FROM CT. PATIENT HAD SCAN OF CHEST PRIOR TO COMING TO THE UNIT. PATIENT ABLE TO TRANSFER SELF FROM GERNEY TO BED WITHOUT DIFFICULTY. PATIENT IS PLEASANT AND TALKATIVE. 20 GAUGE TO LEFT AC, SALINE LOCKED. NO DISTRESS. RESP EVEN AND UNLABORED.
[2017-07-28] MEDS ORDERED: MEGACE40 MG PO (14:40)
[2017-07-28] MEDS ORDERED: LISINOPRIL10 MG PO (14:41)
[2017-07-28 15:39] VITALS: BP 123/84; BMI 17.8
--- NOTE | 2017-07-28 17:05 | NUR ---
FSBS 172. 2 UNITS HUMALOG ADMINISTERED PER SLIDING SCALE.
--- NOTE | 2017-07-28 17:08 | NUR ---
CALLED ER REGISTRATION AND SPOKE WITH BELEM. INFORMED HER THAT PATIENT WOULD LIKE HIS PHONE LOCKED UP BECAUSE HE STATES HE KNOWS HE WILL LOOSE IT. BELEM STATES SOMEONE WILL BE TO UNIT SOON POSSIBLE TO PLASTICS FITTER PHONE AND HAVE HIM SIGN FOR IT. THANKED HER .
--- NOTE | 2017-07-28 17:22 | NUR ---
ROBBY FROM ADMISSIONS HERE AND RETRIEVED PATIENT PHONE. PAPERWORK PLACED ON CHART.
[2017-07-28 17:32] LABS: CKMB 3.1 U/L (0.0-3.6); CREATINE KINASE 124 UL (21-232)
[2017-07-28 17:38] LABS: TROPONIN-I 0.178 ng/mL (0.000-0.060)
--- NOTE | 2017-07-28 19:32 | NUR ---
PT C/O RIB PAIN. DR WOOD ON UNIT, ORDER RECIEVED FOR [facility] FOR PAIN.
--- NOTE | 2017-07-28 20:00 | NUR ---
PT RESTING IN BED. ALERT/ORIENTED. VERY TELLER, EVEN WITH HIS HEARING AIDES IN PLACE. NONLABORED RESPIRATIONS ON ROOM AIR. LEFT A/C PIV SALINE LOCKED. LEFT CHEST WALL PACEMAKER. ASSESSMENT COMPLETED. CALL LIGHT IN REACH. ASSISTED UP TO VOID IN BATHROOM AND THEN BACK TO BED.
--- NOTE | 2017-07-28 22:42 | NUR ---
BEDTIME MEDS GIVEN. REQUESTED PAIN PILL FOR LEG/HIP PAIN. LAB DRAW FOR SERIAL CARDIAC ENZYMES. SR UP X 2. BED ALARM IN PLACE.
[2017-07-28 23:17] LABS: CKMB 2.7 U/L (0.0-3.6); CREATINE KINASE 83 UL (21-232); TROPONIN-I 0.161 ng/mL (0.000-0.060)
--- NOTE | 2017-07-28 23:30 | NUR ---
ASSISTED UP TO BATHROOM TO VOID.
[2017-07-29] VITALS: BP 119/74
[2017-07-29 04:00] VITALS: BP 124/64
[2017-07-29 06:30] LABS: BASOPHILS 0.1 % (0-2); EOSINOPHILS 0.3 % (0-7); HEMOGLOBIN 12.6 g/dL (13.5-17.5); IMMATURE GRANULOCYTES 0.3 % (0-5); LYMPHOCYTES 13.8 % (15-50); MCH 28.1 pg (26.0-34.0); MCHC 33.2 g/dL (31.0-37.0); MCV 84.8 fL (80.0-100.0); MEAN PLATELET VOLUME 12.1 fL (7.4-10.4); MONOCYTES 9.6 % (2-11); NEUTROPHILS 75.9 % (40-80); PLATELET COUNT 169 10x3/uL (130-400); RBC 4.48 10x6/uL (4.20-6.10); RDW 15.6 % (11.5-14.5); WBC 7.5 10x3/uL (4.8-10.8)
[2017-07-29 07:14] LABS: ALKALINE PHOSPHATASE 85 U/L (46-116); ALT (SGPT) 64 U/L (10-68); CALCIUM 9.4 mg/dL (8.5-10.1); CARBON DIOXIDE 28.3 mmol/L (21.0-32.0); CHLORIDE - SERUM 103 mmol/L (98-107); CKMB 1.8 U/L (0.0-3.6); CREATINE KINASE 81 UL (21-232); CREATININE - SERUM 1.2 mg/dL (0.6-1.3); MAGNESIUM - SERUM 1.5 mg/dL (1.8-2.4); SODIUM 140 mmol/L (136-145); UREA NITROGEN 32 mg/dL (7-18); eGFR NON AFRICAN AMERICAN 62 mL/min (90-120)
--- NOTE | 2017-07-29 07:15 | NUR ---
RECIEVED REPORT ON PATIENT, PATIENT IS RESTING AT THIS TIME. NAD NOTED. CHEST RISES AND FALLS EQUALLY. PATIENT IS PACED ON MONITOR WITH A RATE OF 73. PATIENT HAS A L AC IV THAT IS SL AT THIS TIME. PATIENT AROUSES TO VOICE DENIES ANY NEEDS. BED LOW AND LOCKED. CALL LIGHT IN REACH. CPOC
[2017-07-29 07:18] LABS: CALC OSMOLALITY 287 mosm/kg (275-300); GLUCOSE 129 mg/dL (74-106); POTASSIUM - SERUM 3.5 mmol/L (3.5-5.1); TROPONIN-I 0.129 ng/mL (0.000-0.060)
--- NOTE | 2017-07-29 07:23 | NUR ---
PT HAS BEEN UP ALL NIGHT. HE IS ALERT/ORIENTED AND RAMBLES ON IN CONVERSATIONS ABOUT HIS PAST. HE WILL TELL THE NURSES AND CNAS THAT HE JUST FEELS BETTER WHEN STAFF IS IN THE ROOM WITH HIM. ALL SCHEDULED MEDS GIVEN. GIVEN A NORCO THIS AM TO HELP HIM RELAX. ENCOURAGED HIM TO RELAX. ASSISTED HIM UP TO VOID. BED ALARM IN PLACE BECAUSE HIS GAIT IS UNSTEADY. REPORT GIVEN TO ONCOMING RN.
[2017-07-29 07:39] LABS: PRO BNP 107243 pg/mL (0-450)
[2017-07-29 08:00] VITALS: BP 134/76
--- NOTE | 2017-07-29 09:15 | NUR ---
MORNING MEDICATIONS GIVEN WITH NO ISSUES. PATIENT DENIES ANY NEEDS. CPOC
--- NOTE | 2017-07-29 11:50 | NUR ---
PATIENT FSBS 177, 2 UNITS OF HUMALOG GIVEN
[2017-07-29 12:10] VITALS: BMI 17.0
--- NOTE | 2017-07-29 12:25 | NUR ---
PATIENT SITTING UP IN BED EATING LUNCH . DENIES ANY NEEDS. CPOC
--- NOTE | 2017-07-29 14:13 | NUR ---
SCDS ON PATIENT AND TOLERATING AT THIS TIME. CPOC
[2017-07-29 16:00] VITALS: BP 132/77
--- NOTE | 2017-07-29 17:00 | NUR ---
PATIENT FSBS 119. NO INSULIN GIVEN. CPOC
[2017-07-29 17:32] LABS: CREATINE KINASE 89 UL (21-232)
[2017-07-29 17:48] LABS: TROPONIN-I 0.089 ng/mL (0.000-0.060)
--- NOTE | 2017-07-29 18:22 | NUR ---
PATIENT BACK FROM CTA. PATIENT DINNER GIVEN. CPOC
[2017-07-29 19:00] VITALS: BP 131/69
--- NOTE | 2017-07-29 21:37 | NUR ---
PATIENT IS FULLY CLOTHED STATES "I AM GOING HOME". CHARGE NURSE CURRENTLY IN ROOM TALKING TO HIM. WILL MONITOR CLOSELY. BLAIR MAT IN PLACE AND TURNED ON. CALL LIGHT IN REACH.
--- NOTE | 2017-07-29 22:29 | NUR ---
PATIENT KEEPS WALKING OUT OF HIS ROOM TRYING TO LEAVE, CHARGE NURSE IN ROOM AT THIS TIME. I CALLED AND SPOKE WITH NATHANIEL WITH [facility] AND GOT AN ORDER FOR HALDOL 2 MG IM Q 4 HOURS. WILL CONTINUE TO MONITOR CLOSELY. CALL LIGHT IN REACH.
--- NOTE | 2017-07-29 23:41 | NUR ---
DR FRANZ CALLED AND GAVE ORDERS TO GIVE ATIVAN 1 MG Q 4 PRN, TRANSFER TO ICU AND DO A PHYSCH EVAL IN THE AM. CRM SPECIALIST NOTIFIED, ORDERS NOTED.
[2017-07-30] VITALS (16 sets, daily range): BP systolic 97–140; BP diastolic 59–637
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
--- NOTE | 2017-07-30 00:26 | NUR ---
PT RECIEVED. BP 140/79 GIVEN WATER FOR COMFORT. UP IN CHAIR REFUSING TX. WILL CONTINUE TO MONITOR
[2017-07-30 01:30] LABS: APPEARANCE CLEAR (CLEAR); BILIRUBIN NEGATIVE (NEGATIVE); COLOR STRAW (YELLOW); GLUCOSE 50 mg/dL (NEGATIVE); KETONE NEGATIVE (NEGATIVE); NITRITE NEGATIVE (NEGATIVE); PROTEIN 2+ mg/dL (NEGATIVE); UROBILINOGEN NORMAL (NORMAL)
[2017-07-30 01:31] LABS: BACTERIA NONE SEEN /hpf (NONE SEEN); EPITHELIAL CELLS 0-5 /hpf (0-5); RED CELLS - URINE 0-5 /hpf (0-5); WHITE CELLS - URINE NSEEN /hpf (0-5)
--- NOTE | 2017-07-30 02:00 | NUR ---
PT ALLOWED HEART MONITOR TO BE PLACED HR 84 NSR
--- NOTE | 2017-07-30 03:31 | NUR ---
REASSESSMENT COMPLETE PER FLOW SHEET. VSS NO NEW CHANGES PT RESTING COMFORTABLY UP IN CHAIR WILL CONTINUE TO MONITOR
--- NOTE | 2017-07-30 03:44 | NUR ---
GIVEN SANDWHICH TRAY PER REQUEST DENIES FURTHER NEEDS.
[2017-07-30 04:25] LABS: BASOPHILS 0.3 % (0-2); EOSINOPHILS 0.4 % (0-7); HEMATOCRIT 41.6 % (42.0-54.0); HEMOGLOBIN 13.8 g/dL (13.5-17.5); IMMATURE GRANULOCYTES 0.1 % (0-5); LYMPHOCYTES 14.3 % (15-50); MCH 28.4 pg (26.0-34.0); MCHC 33.2 g/dL (31.0-37.0); MCV 85.6 fL (80.0-100.0); MEAN PLATELET VOLUME 11.3 fL (7.4-10.4); MONOCYTES 11.7 % (2-11); NEUTROPHILS 73.2 % (40-80); PLATELET COUNT 191 10x3/uL (130-400); RBC 4.86 10x6/uL (4.20-6.10); RDW 15.1 % (11.5-14.5); WBC 7.3 10x3/uL (4.8-10.8)
[2017-07-30 04:41] LABS: ALBUMIN 3.5 g/dL (3.4-5.0); BILIRUBIN - TOTAL 0.5 mg/dL (0.2-1.3); CALCIUM 9.6 mg/dL (8.5-10.1); CREATININE - SERUM 1.4 mg/dL (0.6-1.3)
[2017-07-30 04:43] LABS: ANION GAP 8.6 mmol/L (8-16); CARBON DIOXIDE 36.1 mmol/L (21.0-32.0); POTASSIUM - SERUM 2.7 mmol/L (3.5-5.1)
--- NOTE | 2017-07-30 07:00 | NUR ---
REPORT RECEIVED FROM OFF GOING NURSE. PT LYING IN BED. SEE ASSESSMENT FLOW SHEET FOR MORE DETAILS. PT IN A PLESANT COOPERATIVE MOOD. VERY [place]. WHENEVER TALKING TO PT, USE A LOAD AND SLOW VOICE TONE SO PT WAS ABLE TO UNDERSTAND, WHICH WAS SUCCESFULL. PT REQUESTED TO USE URINAL WHICH HE WAS ASSISTED TO STAND AND A URINAL WAS PROVIDED. HE VOIDED 350ML OF CLEAR YELLOW URINE. DENIES PAIN/NEEDS AT THIS TIME. CALL LIGHT IN REACH. WILL CONT POC.
--- NOTE | 2017-07-30 09:18 | NUR ---
HELD LISINOPRIL. BP WAS 7/77. RECHECKED AND IT WAS 108/63. OTHER MEDS GIVEN PER ORDERS. HAD TROUBLE SWALLOWING THE FISH OIL PILL. HE STATED HE DRANK A MILK SHAKE AT HIS HOUSE TO HELP HIM SWALLOW HIS MEDIATION. AN ENSURE WAS PROVIDED AND FISH OIL WAS SWALLOWED. AFTER MEDICATION WAS TAKEN, [facility] WERE HERE TO TRANSPORT FOR CXR. EXPLAINED TO PT WAS WAS GOING ON AND HE SHOOK HIS SAID AND SAID "OK". LEFT VIA WC AND WAS CALM AND NON COMBATIVE. BREATHING NORMAL AND UNALABORED.
--- NOTE | 2017-07-30 09:31 | NUR ---
BACK IN BEDSIDE RECLINER. PILLOW PROVIDED FOR COMFORT. PT CALL LIGHT IN REACH. BREATHING NORMAL AND UNLABORED. PT IN A PLEASANT, CALM AND COOPERATIVE MOOD. WILL CONT POC.
--- NOTE | 2017-07-30 10:00 | NUR ---
PT STOOD UP AND WONDERING WHERE HE WAS AT. PT REORIENTED AND BACK IN CHAIR.
--- NOTE | 2017-07-30 11:00 | NUR ---
PT STOOD UP AGAIN AND WAS ATTEMPTING TO WALK AROUND. DR FRANZ IN ICU VISTED WITH PT. ATTEMPTED TO REORIENT AND PT STARTED BECOMING AGGRAVATED AND CONFUSED. PT BACK IN ROOM AND BACK IN CHAIR. PRN ATIVAN WAS GOING TO BE ADMINISTERED BUT PT HAS PULLED OUT IV TO LEFT AC. IV RESITED TO RIGHT FA AND IT IS WRAPPED IN KERLEX FOR PROTECTION. ATIVAN GIVEN PER ORDRES. PT REQUESTED THAT HE SPEAKS TO HIS . CALLED AND THEY SPOKE WITH EACH OTHER. PT IN BED AND CALM AT THE TIME BEING. CALL LIGHT IN REACH. WILL CONT POC.
--- NOTE | 2017-07-30 12:45 | NUR ---
DR SYKES AT BED SIDE. PT NOW RESTING WITH EYES CLOSED WITH 0 S/SX OF DISTRESS/DISCOMFORT NOTED. EXPLAINED TO DR SYKES THAT PRN ATIVAN WAS ADMINISTERED.
--- NOTE | 2017-07-30 14:07 | NUR ---
PT RESTING IN RECLINER WITH CLEAR UNLABORED RESPIRATIONS. NO S/SX OF DISTRESS/DISOCMOFORT NOTED. CALL LIGHT IN REACH.
--- NOTE | 2017-07-30 15:09 | NUR ---
* Is the patient Alert and Oriented? Yes 0 * How many steps to enter\exit or inside your home? 0 0 * PCP Dr. Viral Hernandez 0 * Preadmission Environment Assisted Living 0 * Facility Name [facility] 0 * ADLs Independent 0 * List name and contact numbers for known caregivers / representatives who currently or will assist patient after discharge: Son / POA- Dax Larson [phone] 0 * Additional services required to return to the preadmission environment? No 0 * Can the patient safely return to the preadmission environment? Yes 0 * Has this patient been hospitalized within the prior 30 days at any hospital? Yes Patient Name: JHONNY LARSON Admission Status: ER Accout number: [id number] Admission Date: 07-28-2017 : 1935 Admission Diagnosis:SHORTNESS OF BREATH Attending: EPI WOOD Current LOS: 2 Planned Disposition: Assisted Living Primary Insurance: MEDICARE A & B Discharge Planning Comments: CM met with patient at bedside to assess dc plans/needs. Patient is alert & oriented but very hard of hearing with hearing aides. He states he is waiting on new hearing aides. He requests I call & speak with his son. Spoke with son, Dax, who lives in [place]. Dax reports he is POA. He states his parents have lived at [facility] since the end of April - they live in the Memory Care Unit due to patients impairment. At dc, he plans for patient to return to [facility]. Spoke with Christine (nurse) and [facility]. She reports patient is independent with all ADL's at the facility. They assist him with medication administration. She reports he does not require any assistive devices for ambulation. CM will follow & assist as needed. Computer Hardware Designer: Farhana Bob
--- NOTE | 2017-07-30 15:33 | NUR ---
PT REMAINS IN CHAIR BESIDE BEDSIDE. RESTING WITH EYES CLOSED WITH 0 S/SX OF DISTRESS/DISCOMFOR NOTED. VSS. BREATHING NORMAL AND UNLABORED. RESPONDS TO VERBAL STIMULI. PT VERY DROWSEY. CALL LIGHT IN REACH. WILL CONT POC.
--- NOTE | 2017-07-30 16:30 | NUR ---
PT WAS SATURATED IN URINE AND TRYING TO CRAWL OUT OF HIS RECLINER. ATTEMPTED TO CLEAN PT AND ASKED HIM IF HE WANTED TO STAY IN HIS RECLINER, HE STATED NO. SPEECH WAS GARBLED AND SLURRED. SAT PT UP AND HAD ASSISTANCE TO TRANSFER PT. WHENEVER WE TRIED TO SUPPORT PT, HE STOOD RIGHT UP AND WAS PUNCHING STAFF AND CLAWING. PT VERY CONFUSED AND COMBATIVE. ATTEMPTED TO REORIENT WITH NO SUCCESS. PT TRANSFERED SAFTLY IN BED. WHILE TRYING TO MOVE PT UP IN BED USING THE BED PAD, PT WAS SWINGNG ARMS AND HITTING STAFF INCLUDING ME. HOB ELEVATED AND PT LEFT ALONE. PT RIPPED OFF ELECTRODES ON CHEST. PT LEFT ALONE TO ALOW HIM TO CALM DOWN. AFTER A FEW MINUTES, OF BEING LEFT ALONE, PT WAS ATTEMPTED TO CLIMB OUT OF BED. AGAIN TRIED TO REORIENT WITH NO SUCCESS. PT AGAIN PUNCHING AT ME. DR FRANZ NOTIFED WITH NEW ORDERS FOR SOFT WRIST RESTRAINTS. THEY WERE PLACED TO BILATERAL WRIST AT 1700. ELECTRODES PLACED ON PT. NS RYTHM. PO WATER OFFERED AND CALL LIGHT WITHIN REACH. VSS. BREATHING NORMAL AND UNLABORD. WILL CONT POC.
--- NOTE | 2017-07-30 17:52 | NUR ---
PT WAS RESTING WITH EYES CLOSED. WHENEVER ATTEMTING TO GIVE MEDICATION, PT BECAME VERY ANGRY AND WAS CURSING IN A GARBLED SPEECH. "DAMN IT IVETT GO AWAY" MEDICATION WAS DELIVERED OTHER THAN PO MEDICATION WHERE HE REFUSED. PO FLUIDS OFFERED AND PT REFUSED MEAL. CALL LIGHT IN REACH. WILL CONT POC.
--- NOTE | 2017-07-30 19:15 | NUR ---
ASSESSMENT COMPLETE. S1S2. PACEMAKER TO LEFT CHEST. RR SHALLOW; DIMINISHED IN MID AND LOWER LOBES. GENERALIZED EMACIATION NOTED TO CHEST AND ABD. SHUNKEN SKIN BETWEEN INTERCOSTAL REGIONS. XYPHOID PROCESS VISABLE. SKIN PALE; THIN/TRANSPARENT; WRINKLES. POOR DENTITION. PT RESTLESS/AGITATED. CONFUSED X4. PERRLA. PIV TO RIGHT WRIST; PATENT; DRESSING INTACT; KERLEX INTACT. PT IN RESTRAINTS; R/L WRIST. INCONTINENT.
--- NOTE | 2017-07-30 19:45 | NUR ---
PT INCONTIENT OF URINE. PT CLEANED. COMPLETE LINEN CHANGE. NEW BRIEF PROVIDED.
--- NOTE | 2017-07-30 20:00 | NUR ---
PT REMOVED BP CUFF. REFUSES TO KEEP BP CUFF ON.
--- NOTE | 2017-07-30 20:59 | NUR ---
NO FAMILY OR VISITORS DURING VISITATION.
--- NOTE | 2017-07-30 21:30 | NUR ---
VENOUS DOPPLERS AT BEDSIDE.
--- NOTE | 2017-07-30 22:10 | NUR ---
PT INCONTINENT; NEW BRIEF AND COMPLETE LINEN CHANGED. ADJUSTED PT POSITION. PT REFUSES TO REMAIN ON EITHER SIDE. PULLS COVERS AND PILLOWS OFF DESPITE RESTRAINTS AND LAYS ON BACK.
--- NOTE | 2017-07-30 23:20 | NUR ---
REASSESSMENT COMPLETE. NO ACUTE CHANGES FROM PREVIOUS ASSESSMENT. WILL CONTINUE TO MONITOR. WILL CONTINUE PLAN OF CARE.
[2017-07-31] VITALS (20 sets, daily range): BP systolic 82–132; BP diastolic 54–111
--- NOTE | 2017-07-31 01:30 | NUR ---
PT AWAKE RESTLESS. VSS. NO DISTRESS NOTED. RESTRAINTS IN PLACE. WILL CONTINUE TO MONITOR.
--- NOTE | 2017-07-31 02:00 | NUR ---
PT REMOVED BP CUFF. REFUSES TO KEEP IT ON.
--- NOTE | 2017-07-31 03:30 | NUR ---
REASSESSMENT COMPLETE. NO ACUTE CHANGES FROM PREVIOUS ASSESSMENT. SEE FLOW SHEET FOR DETAILS.
[2017-07-31 04:16] LABS: BASOPHILS 0.2 % (0-2); EOSINOPHILS 0.5 % (0-7); HEMATOCRIT 42.1 % (42.0-54.0); HEMOGLOBIN 15.2 g/dL (13.5-17.5); IMMATURE GRANULOCYTES 0.2 % (0-5); LYMPHOCYTES 15.9 % (15-50); MCH 33.3 pg (26.0-34.0); MCHC 36.1 g/dL (31.0-37.0); MEAN PLATELET VOLUME 12.6 fL (7.4-10.4); MONOCYTES 7.2 % (2-11); PLATELET COUNT 209 10x3/uL (130-400); RBC 4.57 10x6/uL (4.20-6.10); RDW 15.9 % (11.5-14.5); WBC 6.3 10x3/uL (4.8-10.8)
[2017-07-31 04:24] LABS: MCV 92.1 fL (80.0-100.0)
[2017-07-31 04:41] LABS: ALBUMIN 3.7 g/dL (3.4-5.0); ANION GAP 10.1 mmol/L (8-16); BILIRUBIN - TOTAL 0.73 mg/dL (0.2-1.3); CALCIUM 9.6 mg/dL (8.5-10.1); CARBON DIOXIDE 38.9 mmol/L (21.0-32.0); CREATININE - SERUM 1.2 mg/dL (0.6-1.3); PRE-ALBUMIN 21.1 mg/dL (18.0-35.7); PROTEIN - SERUM 7.2 g/dL (6.4-8.2)
--- NOTE | 2017-07-31 05:00 | NUR ---
PT REMOVED BP CUFF. REFUSES TO KEEP BP CUFF ON.
--- NOTE | 2017-07-31 05:59 | NUR ---
NO VISITORS DURING VISITATION.
--- NOTE | 2017-07-31 09:09 | NUR ---
REPORT RECIEVED FROM OFF GOING NURSE. SEE FLOW SHEET FOR ASSESSMENT. PT VERY CONFUSED ONLY ORIENTED TO PERSON ONLY. ORIENTED TO TIME AND PLACE. HE BELIVES THAT HE WALKED HERE THIS AM. EXPLAINED WHY HE WAS HERE. PT PLEASANT AND COOPERATIVE AT THIS TIME. SOFT RESTRAINTS REMOVED. BILATERAL WRIST RED. IV TO LEFT WRIST PATENT BUT DRESSING IS BLOODY. WAS TOLD IN REPORT THAT PT BECAME AGGRIAVATED AND WAS THRASHING ARMS IN BED. ATTEMPTED TO RESITE IV X3 WITH NO SUCCESS. ANOTHER NURSE ATTEMPTED WITH NO SUCCESS. VASCULAR NURSE PAGED. BED LINEN CHANGED. PT SATURATED IN URINE. PT CLEANED. BREAKFAST SPOON FED TO PT. CALL LIGHT IN REACH. WILL CONT POC.
--- NOTE | 2017-07-31 09:23 | NUR ---
LISINOPRIL HELD DUE TO BP 115/66. AWARE.
--- NOTE | 2017-07-31 09:50 | NUR ---
VASCULAR NURSE AT BED SIDE. PLACED A 20 GAUGE IN RIGHT POSTERIOR ARM. IV TO RIGHT WRIST HAD BLOOD DRIED UNDER BANDAGE. IT IS PATENT, HOWEVER IF RESTRAINTS ARE NEEDED AGAIN TODAY, IT COULD BE FURTHER DAMAGED. IV DC WITH CATHETER TIP INTACT. NO S/SX OF INFECTION NOTED WILL CONT POC.
--- NOTE | 2017-07-31 10:14 | NUR ---
NUTRITION F/U CHART REVIEWED. PT UP WITH PT. ADDED GLUCERNA SHAKE TO ALL MEALS. WILL CONTINUE TO PROVIDE DIET, SHAKE. MONITOR PO INTAKE. RD FOLLOWING
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
--- NOTE | 2017-07-31 11:30 | NUR ---
PT RIPPED OUT IV. CATHETER TIP INTACT. PT CLEANED AND ASSISTED BACK IN BED. NEW IV SITED TO [facility] UPPER ARM AND PT PUT BACK IN RESTRAINTS FOR SAFTEY FROM HIMSELF. PT FEED LUNCH AND PO LIQUIDS PROVIDED. CALL LIGHT IN REACH. WILL CONT POC.
[2017-07-31 14:08] LABS: ALBUMIN 3.5 g/dL (3.4-5.0); ANION GAP 13.1 mmol/L (8-16); BILIRUBIN - TOTAL 0.49 mg/dL (0.2-1.3); CALCIUM 9.8 mg/dL (8.5-10.1); CARBON DIOXIDE 34.3 mmol/L (21.0-32.0); CREATININE - SERUM 1.4 mg/dL (0.6-1.3); POTASSIUM - SERUM 3.4 mmol/L (3.5-5.1)
--- NOTE | 2017-07-31 15:00 | NUR ---
NO CHANGE IN PTS CONDITION. PT REMAINS IN SOFT RESTRAINTS TO PROTECT HIMSELF. REMOVED PER ORDRES. PO FLUIDS PROVIDED. CALL LIGHT IN HAND. PT STILL REMAINS VERY CONFUSED. BREATHING NORMAL AND UNLABORED. 0 NEEDS VOICED AT THIS TIME. WILL CONT POC.
--- NOTE | 2017-07-31 15:15 | NUR ---
PT BLADDER INC. PERICARE PREFORMED. NEW BRIEF, AND NEW LINENS TO BED AND PT. BUTT PAST APPLIED TO PT. PO FLUIDS GIVEN TO PT. CALL LIGHT IN REACH. WILL CONT POC.
--- NOTE | 2017-07-31 16:00 | NUR ---
ASSISTED WITH DINNER. FED PT HIS FOOD WHERE HE AT 100% OF HIS MEAL, DRANK 8 OZ OF TEA AND 8 OZ OF HIS DIABETIC SHAKE. CALL LIGHT IN REACH. NO NEEDS AT THIS TIME. BREATHING NORMAL AND UNLABORED. WILL CONT POC.
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
[2017-07-31 19:21] LABS: MAGNESIUM - SERUM 1.6 mg/dL (1.8-2.4); POTASSIUM - SERUM 3.7 mmol/L (3.5-5.1)
--- NOTE | 2017-07-31 19:50 | NUR ---
PT INCONTINENT; BRIEF CHANGED. BOB PAD CHANGED.
--- NOTE | 2017-07-31 22:00 | NUR ---
NO FAMILY OR VISITORS DURING VISITATION.
--- NOTE | 2017-07-31 23:00 | NUR ---
REASSESSMENT COMPLETE. NO ACUTE CHANGES FROM PREVIOUS ASSESSMENT. CONTINUE POC.
--- NOTE | 2017-07-31 23:45 | NUR ---
COMPLETE BATH; ASSISTED TO CHAIR. COMPLETE LINEN CHANGE.
[2017-08-01] VITALS (24 sets, daily range): BP systolic 98–126; BP diastolic 46–89
--- NOTE | 2017-08-01 00:25 | NUR ---
PT RESTING; EYES CLOSED. VSS. NO DISTRESS NOTED. WILL CONTINUE TO MONITOR.
--- NOTE | 2017-08-01 03:10 | NUR ---
REASSESSMENT COMPLETE. NO ACUTE CHANGES FROM PREVIOUS ASSESSMENT. WILL CONTINUE TO MONITOR.
[2017-08-01 03:43] LABS: BASOPHILS 0.3 % (0-2); EOSINOPHILS 1.5 % (0-7); HEMATOCRIT 40.3 % (42.0-54.0); HEMOGLOBIN 13.3 g/dL (13.5-17.5); IMMATURE GRANULOCYTES 0.2 % (0-5); LYMPHOCYTES 19.9 % (15-50); MCH 28.6 pg (26.0-34.0); MEAN PLATELET VOLUME 11.4 fL (7.4-10.4); MONOCYTES 12.2 % (2-11); NEUTROPHILS 65.9 % (40-80); PLATELET COUNT 188 10x3/uL (130-400); RBC 4.65 10x6/uL (4.20-6.10); RDW 14.9 % (11.5-14.5); WBC 6.5 10x3/uL (4.8-10.8)
[2017-08-01 03:51] LABS: MCV 86.7 fL (80.0-100.0)
[2017-08-01 04:12] LABS: ALBUMIN 3.4 g/dL (3.4-5.0); ANION GAP 9.7 mmol/L (8-16); BILIRUBIN - TOTAL 0.5 mg/dL (0.2-1.3); CALCIUM 9.4 mg/dL (8.5-10.1); CARBON DIOXIDE 38.6 mmol/L (21.0-32.0); CREATININE - SERUM 1.3 mg/dL (0.6-1.3); POTASSIUM - SERUM 3.3 mmol/L (3.5-5.1); PROTEIN - SERUM 6.4 g/dL (6.4-8.2)
[2017-08-01 11:19] LABS: ACLA - IGG AB <9 GPL U/mL (0-14); ACLA - IGM AB <9 MPL U/mL (0-12)
[2017-08-01 12:16] LABS: HAPTOGLOBIN 246 mg/dL (34-200)
--- NOTE | 2017-08-01 13:02 | NUR ---
0700-RECIEVED ALERT AND AWAKE ABLE TO FOLLOW INSTRUCTION-HARD OF HEARING-NOT PULLING ON LINES-SOFT WRIST RESTRAINTS REMOVED-PLAN FREQUENT ASSESSMENT-R UPPER ARM SALINE LOCKED 0830-ASSISTED TO BEDSDIE CHAIR-BREAKFEST TRAY-R UPPER ARM SALINE LOCK IN PLACE-RESTRAINTS REMAIN OFF 0915-AMBULATED WELL WITH PHYSICAL THERAPY-RETURNED TO CHAIR-PT ABLE TO STATE NAMES OF CHILDREN--SON CALLED UNIT -UPDATE GIVEN 1030-ASSISTED BACK TO BED-TOLERATED WELL-IV REMAINS IN PLACE-NO EFFORT BY PT TO REMOVE 1130-DR FRANZ AT BEDSIDE-STATUS REPORT GIVEN-RESTRAINTS REMAIN OFF 1230-LUNCH TRAY GIVEN
--- NOTE | 2017-08-01 18:15 | NUR ---
ATE ALL OF HIS SUPPER TRAY. COOPERATIVE RIGHT NOW. LIKES HIS WATER AND HIS URINAL AND HE WILL TELL YOU THAT IS ALL HE NEEDS. HE BECOMES VERY CONCERN WHEN YOU TAKE THE URINAL AND EMPTY IT. VOIDING SMALL AMOUNTS 100CC CLEAR SANDER URINE AT A TIME. DENIES PAIN OR SHORTNESS OF BREATH. ABD SOFT. MOVES UP IN BED WITHOUT ASSISTANCES
--- NOTE | 2017-08-01 19:15 | NUR ---
ASSESSMENT COMPLETE. PT CONFUSED; ORIENTED TO SELF. DECREASE IN CONFUSION WITH LUCID MOMENTS NOTED WHILE CONVERSING WITH PT. RADIAL AND PEDAL PULSES PALPATED. NSR SHOWING ON MONITOR. URINAL AT BEDSIDE. BOWEL SOUNDS ACTIVE. RR UNLABORED. WEAKNESS NOTED TO EXTREMITIES. BED ALARM IN PLACE. PIV TO RIGHT UPPER ARM; PATENT.
--- NOTE | 2017-08-01 22:00 | NUR ---
NO FAMILY OR VISITORS DURING VISITATION. CALLED BRANDYWINE AND SPOKE TO AND LET PT SPEAK TO . HAD TO TRANSLATE PT COULD NOT HEAR THROUGH PHONE.
--- NOTE | 2017-08-01 22:15 | NUR ---
PT AT BEDSIDE IN CHAIR. SANDWICH AND 3 JELLOS PROVIDED. COMPLETE LINEN CHANGE. PARTIAL BATH. NEW BRIEF PROVIDED.
--- NOTE | 2017-08-01 23:10 | NUR ---
REASSESSMENT COMPLETE. NO ACUTE CHANGES FROM PREVIOUS ASSESSMENT.
--- NOTE | 2017-08-01 23:43 | NUR ---
PT ASSISTED BACK TO BED; CALL LIGHT IN REACH. VSS. WILL CONTINUE TO MONITOR. BED ALARM IN PLACE.
[2017-08-02] VITALS (21 sets, daily range): BP systolic 87–140; BP diastolic 39–95
--- NOTE | 2017-08-02 01:30 | NUR ---
PT RESTING; EYES CLOSED. VSS. NO DISTRESS NOTED. CALL LIGHT IN REACH. WILL CONTINUE TO MONITOR.
--- NOTE | 2017-08-02 03:00 | NUR ---
REASSESSMENT COMPLETE. NO ACUTE CHANGES FROM PREVIOUS ASSESSMENT.
--- NOTE | 2017-08-02 04:45 | NUR ---
PT ASSISTED TO BEDSIDE CHAIR. CALL LIGHT IN REACH. AMULATE WITH SLIGHT ASSIST X1.
[2017-08-02 05:13] LABS: BASOPHILS 0.5 % (0-2); EOSINOPHILS 1.9 % (0-7); HEMATOCRIT 36.2 % (42.0-54.0); HEMOGLOBIN 13.5 g/dL (13.5-17.5); IMMATURE GRANULOCYTES 0.2 % (0-5); LYMPHOCYTES 26.4 % (15-50); MCH 36.3 pg (26.0-34.0); MCHC 37.3 g/dL (31.0-37.0); MEAN PLATELET VOLUME 11.7 fL (7.4-10.4); MONOCYTES 6.3 % (2-11); NEUTROPHILS 64.7 % (40-80); PLATELET COUNT 184 10x3/uL (130-400); RBC 3.72 10x6/uL (4.20-6.10); RDW 18.6 % (11.5-14.5); WBC 5.7 10x3/uL (4.8-10.8)
[2017-08-02 05:26] LABS: ALBUMIN 3.2 g/dL (3.4-5.0); ANION GAP 7.5 mmol/L (8-16); BILIRUBIN - TOTAL 0.55 mg/dL (0.2-1.3); CALCIUM 9.1 mg/dL (8.5-10.1); CARBON DIOXIDE 36.2 mmol/L (21.0-32.0); CREATININE - SERUM 1.3 mg/dL (0.6-1.3); POTASSIUM - SERUM 3.7 mmol/L (3.5-5.1); PROTEIN - SERUM 6.7 g/dL (6.4-8.2)
[2017-08-02 05:32] LABS: MCV 97.3 fL (80.0-100.0)
[2017-08-02 08:17] LABS: CEA 2.3 ng/mL (0.0-4.7)
--- NOTE | 2017-08-02 09:07 | NUR ---
Nutrition Follow Up: Chart reviewed. Pt is eating 88% meal avg on a diabetic diet. She is receiving Glucerna TID. Wt loss noted - likely r/t fluid loss. No BM since admit. Labs reviewed. Meds noted including Lasix. Rec continue current diet, supplement regimen. RD following.
[2017-08-02 14:21] LABS: SPE - A/G RATIO 1.3 (0.7-1.7); SPE - ALBUMIN 3.7 g/dL (2.9-4.4); SPE - ALPHA-1 GLOBULIN 0.3 g/dL (0.0-0.4); SPE - ALPHA-2 GLOBULIN 0.9 g/dL (0.4-1.0); SPE - GAMMA GLOBULIN 0.8 g/dL (0.4-1.8); SPE - M-SPIKE Not Observed g/dL (Not Observed); SPE - TOTAL PROTEIN 6.6 g/dL (6.0-8.5)
[2017-08-02 19:11] LABS: PROTEIN S - FREE 134 % (57-157); PROTEIN S - TOTAL 94 % (60-150)
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
--- NOTE | 2017-08-02 20:00 | NUR ---
2000: Pt attempting to get OOB. Pt states he needs to use the restroom. Assisted pt with urinal at this time. Pt urinated 200cc of dark yellow UOP. Pt assisted back to bed with minimal assistance.
--- NOTE | 2017-08-02 22:00 | NUR ---
2200: Pt attempting to get OOB. Bed alarm sounding. Assisted patient back to bed. Pt disoriented to time, verbal reorientation provided. Pt very [place] and difficult to orient related to hearing. Pt pulling at monitor wires. Pt is Paced 60's on CM with SBP 100's. Pt RR16x with SPO2 95% on RA. All monitors removed at this time. (VSQ4H)
[2017-08-02 22:07] LABS: LUPUS - INTERPRETATION Comment: (()); LUPUS - THROMBIN TIME 21.4 sec (0.0-23.0); LUPUS - dRVVT 38.2 sec (0.0-47.0); PROTEIN S - FREE 125 % (57-157); PROTEIN S - FUNCTIONAL 102 % (63-140); PROTEIN S - TOTAL 98 % (60-150); PTT-LA 38.4 sec (0.0-51.9)
[2017-08-03] VITALS (7 sets, daily range): BP systolic 97–124; BP diastolic 49–85
--- NOTE | 2017-08-03 | NUR ---
0000: Pt resting with eyes closed at this time.
[2017-08-03 03:53] LABS: BASOPHILS 0.4 % (0-2); EOSINOPHILS 2.4 % (0-7); HEMOGLOBIN 13.6 g/dL (13.5-17.5); IMMATURE GRANULOCYTES 0.2 % (0-5); LYMPHOCYTES 19.9 % (15-50); MCH 28.5 pg (26.0-34.0); MCHC 32.4 g/dL (31.0-37.0); MEAN PLATELET VOLUME 10.9 fL (7.4-10.4); MONOCYTES 8.4 % (2-11); NEUTROPHILS 68.7 % (40-80); PLATELET COUNT 173 10x3/uL (130-400); RDW 14.9 % (11.5-14.5); WBC 5.5 10x3/uL (4.8-10.8)
[2017-08-03 03:54] LABS: MCV 87.9 fL (80.0-100.0); RBC 4.78 10x6/uL (4.20-6.10)
[2017-08-03 04:01] LABS: ANION GAP 7.7 mmol/L (8-16); CALCIUM 9.1 mg/dL (8.5-10.1); CARBON DIOXIDE 35.1 mmol/L (21.0-32.0); CREATININE - SERUM 1.1 mg/dL (0.6-1.3); POTASSIUM - SERUM 3.8 mmol/L (3.5-5.1)
[2017-08-03 04:13] LABS: INR 1.07 (0.85-1.17); PROTIME 13.8 SECONDS (11.6-15.0)
--- NOTE | 2017-08-03 05:00 | NUR ---
0500: Pt watching TV in bed at this time. Pt assisted with urinal. Pt urinated 300cc of yellow UOP.
[2017-08-03 12:10] LABS: PROTEIN C - ANTIGEN 84 % (60-150); PROTEIN C - FUNCTIONAL 104 % (73-180)
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
--- NOTE | 2017-08-03 20:00 | NUR ---
2000: Pt resting in bed with eyes closed at this time. Did not disturb, see prior notations. Pt remains Paced on CM 60's with SBP 119. Pt remains on RA [id number] with SPO2 95%. Right arm PIV intact and saline locked. Bed alarm on and audible.
[2017-08-04] VITALS (12 sets, daily range): BP systolic 100–134; BP diastolic 59–81
--- NOTE | 2017-08-04 | NUR ---
0000: Pt remains in bed with eyes closed at this time. Pt Paced on CM 70's. Breathing RA RR16x with SPO2 97%.
--- NOTE | 2017-08-04 01:30 | NUR ---
0130: Assisted pt up OOB to use urinal. Pt urinated 200cc of dark yellow urine. Pt assisted back to bed with minimal assistance. Pt remains Paced on CM with SBP 100's.
--- NOTE | 2017-08-04 03:50 | NUR ---
0350: Pt assisted with urinal. Pt urinated 150cc dark yellow UOP. Pt returned to bed without difficulty. Pt calm and cooperative. pt returns to resting with eyes closed at this time.
[2017-08-04 04:11] LABS: INR 1.16 (0.85-1.17); PROTIME 14.7 SECONDS (11.6-15.0)
--- NOTE | 2017-08-04 07:58 | NUR ---
RECIEVD AWAKE ALERT-IN BED AND ASKING FOR BREAKFEST-NOT ABLE TO STATE WHERE/WHY-COULD BE SEVERE HEARING ISSUE-APPEARS CALMER -USING URINAL CORRECTING
--- NOTE | 2017-08-04 10:33 | NUR ---
ASSISTED UP TO CHAIR-PT CRYING STATING NEED TO SEE -NOT COMPREHENDING OR HEARING IS SAFE AT [facility] AND HE IS IN HOSPITAL-NEED TO GET WELL TO TAKE CARE-INCREASING AGITATION-ATIVAN 1MG IVP GIVEN
--- NOTE | 2017-08-04 17:56 | NUR ---
SPOKE WITH SON JEYSON REGARDING POSSIBLE DISCHARGE -INFORMED [place] WITH CASE MANAGEMENT WILL START ARRANGEMENT WITH RESIDENT FACILITY ON SATURDAY-CURRENTLY STILL EXHIBITS SEVERE CONFUSION-AND AGITATION HOSTILITY-STATED MOTHER WITH ALZHEIMERS REMARKED ON INCREASED HOSTILITY -SON SUGGESTED NEW HEARING AID BATTERY-STATED ONE BROKEN-REPLACED BATTERY IN L HEARING AID-PT NODDED YES WHEN ASKED IF HEARS BETTER-DID NOT FOLLOW DIRECTION-SMILED A LOT-NOT CONFIDENT HEARING IMPROVED
--- NOTE | 2017-08-04 19:20 | NUR ---
PT IN BED WITH EYES OPEN WATCHING TV. NO S/S OF DISTRESS AND PT CALM. PERIPHERAL IV TO RIGHT UPPER ARM SALINE LOCK. NO NEEDS OR CONCERNS NOTED AT THIS TIME. CALL LIGHT IN REACH. WILL CONTINUE TO OBSERVE.
--- NOTE | 2017-08-04 21:20 | NUR ---
PT IN BED WITH EYES OPEN WATCHING TV. NO S/S OF DISTRESS NOTED. NO BEHAVIORS AT THIS TIME. CALL LIGHT IN REACH. WILL CONTINUE TO OBSERVE.
--- NOTE | 2017-08-04 23:16 | NUR ---
PT IN BED WITH EYE CLOSED AND CHEST RISING. NO S/S OF DISTRESS NOTED. EASILY AROUSED TO VERBAL STIMULI. NO CONCERNS NOTED AT THIS TIME. CALL LIGHT IN REACH. WILL CONTINUE TO OBSERVE.
[2017-08-05] VITALS (16 sets, daily range): BP systolic 91–133; BP diastolic 45–117
--- NOTE | 2017-08-05 01:02 | NUR ---
PT RESTING AT THIS TIME, VSS, CALL LIGHT IN REACH
--- NOTE | 2017-08-05 02:58 | NUR ---
PT IN BED WITH EYES CLOSED AND CHEST RISING. NO CONCERNS NOTED AT THIS TIME. CALL LIGHT IN REACH
[2017-08-05 03:31] LABS: BASOPHILS 0.7 % (0-2); EOSINOPHILS 2.2 % (0-7); HEMATOCRIT 39.8 % (42.0-54.0); HEMOGLOBIN 12.8 g/dL (13.5-17.5); IMMATURE GRANULOCYTES 0.2 % (0-5); LYMPHOCYTES 23.2 % (15-50); MCH 27.9 pg (26.0-34.0); MCHC 32.2 g/dL (31.0-37.0); MCV 86.7 fL (80.0-100.0); MEAN PLATELET VOLUME 11.3 fL (7.4-10.4); MONOCYTES 10.4 % (2-11); NEUTROPHILS 63.3 % (40-80); PLATELET COUNT 198 10x3/uL (130-400); RBC 4.59 10x6/uL (4.20-6.10); RDW 14.6 % (11.5-14.5)
[2017-08-05 03:40] LABS: CALC OSMOLALITY 282 mosm/kg (275-300); CALCIUM 8.8 mg/dL (8.5-10.1); CARBON DIOXIDE 32.9 mmol/L (21.0-32.0); CHLORIDE - SERUM 100 mmol/L (98-107); GLUCOSE 104 mg/dL (74-106); POTASSIUM - SERUM 4.3 mmol/L (3.5-5.1); SODIUM 138 mmol/L (136-145); UREA NITROGEN 32 mg/dL (7-18); eGFR NON AFRICAN AMERICAN 76 mL/min (90-120)
[2017-08-05 03:46] LABS: INR 1.3 (0.85-1.17); PROTIME 16.1 SECONDS (11.6-15.0)
--- NOTE | 2017-08-05 05:10 | NUR ---
PT IN BED WITH EYES OPEN AT THIS TIME. LINENS CHANGED DUE TO INCONTINENCE. NO BEHAVIORS NOTED AT THIS TIME. NO CONCERNS NOTED. CALL LIGHT IN REACH. WILL CONTINUE TO OBSERVE.
--- NOTE | 2017-08-05 07:00 | NUR ---
REPORT RECIEVED FROM OFF GOING NURSE. SEE FLOW SHEET FOR ASSESSMENT. ALARMS IN PLACE. PT PLEASANTLY CONFUSED. NO S/SX OF DISTRESS/DISCOMFORT NOTED. CALL LIGHT IN RECAH.
--- NOTE | 2017-08-05 08:00 | NUR ---
PT CLIMBING OOB AND SELF TRANSFERING TO BSC. ASSISTED PT WITH THE REST OF TRANSFER. BRIEF SATURATED WITH URINE. PT STATED HE NEEDED TO USE THE REST ROOM. REMINDED PT THAT HE IS TO USE CALL LIGHT. VERBALLY STATES THAT HE UNDERSTOOD.
--- NOTE | 2017-08-05 10:30 | NUR ---
PT HAS BEEN ATTEMPTING TO GET OOB. HAS BEEN IN RECLINER AND ALSO BEEN IN BED ALTERNATING SPOTS. PT SOUNDS ALARM EACH TIME AND ASSISTED WITH TRANSFER. REMINDED PT TO USE CALL LIGHT WHENEVER NEEDING HELP.
--- NOTE | 2017-08-05 11:04 | NUR ---
Nutrition follow-up: Diet: ADA consistent CHO Glucerna with meals PO intake continues to be good Wt: 126# -> trending up Labs reviewed RDN following.
--- NOTE | 2017-08-05 15:00 | NUR ---
PT REMAINS CONFUSED. SON CALLED PER PT REQUEST AND PHONE CALL TRANSFERED TO PT'S ROOM WHERE THEY SPOKE TO EACH OTHER VIA PHONE. NO S/SX OF DISTRESS/DISCOMFORT NOTED. CALL LIGHT IN REACH. WILL CONT POC
--- NOTE | 2017-08-05 18:00 | NUR ---
PT REMAINED IN BED FOR DINNER. BREIF CHECKED. PT IS DRY. BREATHING NORMAL AND UNLABORED. CALL LIGHT INR EACH. WILL CONT POC
--- NOTE | 2017-08-05 19:20 | NUR ---
PT IN BED WITH EYES OPEN WATCHING TV. NO NEEDS OR CONCERNS NOTED AT THIS TIME. PT HAD REMOVED TELEMETRY, B/P CUFF, AND SPO2 AND WAS REATTACHED. WILL CONTINUE TO OBSERVE.
[2017-08-05 20:08] LABS: FACTOR II DNA ANALYSIS Negative (())
--- NOTE | 2017-08-05 21:00 | NUR ---
PT PUSHED CALL LIGHT FOR ASSISTANCE TO BEDSIDE COMMODE. MIN ASSIST NEEDED WITH TRANSFER TO AND FROM BEDSIDE COMMODE. LINENS CHANGED DUE TO WETNESS. NO OTHER CONCERN MADE KNOWN.
--- NOTE | 2017-08-05 23:00 | NUR ---
PT IN BED WITH EYES OPEN WATCHING TV. ATTEMPTING TO GET UP UNASSISTED TO USE BEDSIDE COMMODE. NO OTHER CONCERNS NOTED. CALL LIGHT IN REACH.
[2017-08-06] VITALS (7 sets, daily range): BP systolic 90–120; BP diastolic 59–86
--- NOTE | 2017-08-06 00:56 | NUR ---
PT IN BED WITH EYES OPEN YELLING OUT AT TIMES. NO OTHER BEHAVIORS NOTED. CALL LIGHT IN REACH. WILL CONTINUE TO OBSERVE.
--- NOTE | 2017-08-06 03:10 | NUR ---
PT IN BED WITH EYES OPEN. SEVERAL ATTEMPTS TO GET UP UNASSISTED SETTING OFF BED ALARM. PT MADE COMFORTABLE AND ATTEMPT TO REORIENTATE. NO OTHER CONCERNS NOTED. WILL CONTINUE TO OBSERVE.
[2017-08-06 04:08] LABS: BASOPHILS 0.5 % (0-2); EOSINOPHILS 2.3 % (0-7); HEMATOCRIT 38.1 % (42.0-54.0); HEMOGLOBIN 12.4 g/dL (13.5-17.5); IMMATURE GRANULOCYTES 0.2 % (0-5); LYMPHOCYTES 20.3 % (15-50); MCH 28.5 pg (26.0-34.0); MCHC 32.5 g/dL (31.0-37.0); MCV 87.6 fL (80.0-100.0); MEAN PLATELET VOLUME 11.2 fL (7.4-10.4); MONOCYTES 11.6 % (2-11); NEUTROPHILS 65.1 % (40-80); PLATELET COUNT 210 10x3/uL (130-400); RBC 4.35 10x6/uL (4.20-6.10); RDW 14.5 % (11.5-14.5); WBC 6.1 10x3/uL (4.8-10.8)
[2017-08-06 04:20] LABS: ANION GAP 8.4 mmol/L (8-16); CALCIUM 8.7 mg/dL (8.5-10.1); CARBON DIOXIDE 32.6 mmol/L (21.0-32.0); CREATININE - SERUM 1.2 mg/dL (0.6-1.3)
[2017-08-06 04:46] LABS: INR 1.71 (0.85-1.17)
--- NOTE | 2017-08-06 05:00 | NUR ---
PT IN BED WITH EYES OPEN WATCHING. NO S/SOF DISTRESS. NO CONCERNS NOTED. CALL LIGHT IN REACH. WILL CONTINUE TO OBSERVE.
--- NOTE | 2017-08-06 07:00 | NUR ---
REC'D REPORT AND RESUMED CARE, SLEEPING WITH NO SIGNS OF DISTRESS, VSS, C/O PAIN IN RIGHT SHOULDER 02/13, O2 VIA RA, SAT 98%, RIGHT UPPER ARM PIV SL, ALCOHOL CAP IN PLACE, DRESSING CDI, URINAL IN USE, SELF REPOSITIONS, CALL LIGHT IN REACH, ASSESSMENT COMPLETE PER FLOWSHEET
--- NOTE | 2017-08-06 07:45 | NUR ---
BREAKFAST TRAY TO BEDSIDE, MERCEDEZ WITH SET UP, INDEPENDENT WITH EATING
--- NOTE | 2017-08-06 08:15 | NUR ---
CALL LIGHT ON, OOB TO BEDSIDE COMMODE WITH ASSIST, URINATED 150 CC TO [place], BACK TO BED WITH ASSIST, NO OTHER NEEDS AT THIS TIME
--- NOTE | 2017-08-06 09:10 | NUR ---
AM MEDS GIVEN WITHOUT DIFFICULTY
--- NOTE | 2017-08-06 10:30 | NUR ---
CALL LIGHT ON, OOB TO BEDSIDE COMMODE WITH ASSIST, 200 CC URINE TO CONTAINER, SKINCARE, TO CHAIR WITH ASSIST, TOLERATED TRANSFER WITHOUT DIFFICULTY
--- NOTE | 2017-08-06 11:00 | NUR ---
CONTINUES TO SIT UP IN CHAIR, IN RECLINING POSITION, NODDING ON AND OFF, ASSESSMENT COMPLETE, NO CHANGE FROM PREVIOUS
--- NOTE | 2017-08-06 12:05 | NUR ---
LUNCH TRAY TO CHAIR SIDE, ASSIT WITH SET UP INDEPENDENT WITH EATING
--- NOTE | 2017-08-06 15:00 | NUR ---
BACK TO BED WITH ASSIST, TOLERATED TRANSFER WITHOUT DIFFICULTY, NO ACUTE CHANGE FROM PREVIOUS
--- NOTE | 2017-08-06 17:00 | NUR ---
DINNER TRAY TO BEDSIDE, ASSIST WITH SET UP, INDEPENDENT WITH EATING
--- NOTE | 2017-08-06 18:15 | NUR ---
CALL LIGHT ON, 200 CC URINE TO URINAL, INDEPENDENT WITH SKINCARE, NO OTHER NEEDS AT THIS TIME
--- NOTE | 2017-08-06 19:30 | NUR ---
REPORT RECIEVED. ASSESSMENT COMPLETE PER FLOW SHEET. DENIES NEEDS. GIVEN JELLO AQTE 100% ASSISTED OOB TO NR 200 CC SANDER URINE NOTED.
--- NOTE | 2017-08-06 21:12 | NUR ---
NO VISITORS AT THIS TIME. VSS. GIVEN [place] TRAY PER REQUEST. DENIES FURTHER NEEDS. WILL CONTINUE TO MONITOR
--- NOTE | 2017-08-06 22:00 | NUR ---
ASSISTED TO BEDSIDE COMMODE. SMALL BM NOTED WILL CONTINUE TO MONITOR
--- NOTE | 2017-08-06 23:32 | NUR ---
NO NEW CHANGES AT THIS TIME. VSS. DENIES NEEDS. WILL CONTINUE TO MONITOR
--- NOTE | 2017-08-06 23:33 | NUR ---
ASSITED WITH URINAL 200 CC SANDER URINE NOTED. WILL CONTINUE TO MONITOR
[2017-08-07 04:32] LABS: BASOPHILS 0.3 % (0-2); EOSINOPHILS 1.8 % (0-7); HEMATOCRIT 39.4 % (42.0-54.0); HEMOGLOBIN 13.3 g/dL (13.5-17.5); IMMATURE GRANULOCYTES 0.3 % (0-5); LYMPHOCYTES 24.7 % (15-50); MCH 30.9 pg (26.0-34.0); MCHC 33.8 g/dL (31.0-37.0); MEAN PLATELET VOLUME 11.8 fL (7.4-10.4); MONOCYTES 11.7 % (2-11); NEUTROPHILS 61.2 % (40-80); RBC 4.31 10x6/uL (4.20-6.10); WBC 6.7 10x3/uL (4.8-10.8)
[2017-08-07 04:38] LABS: MCV 91.4 fL (80.0-100.0); PLATELET COUNT 266 10x3/uL (130-400)
[2017-08-07 04:45] LABS: ANION GAP 8.8 mmol/L (8-16); CARBON DIOXIDE 32.7 mmol/L (21.0-32.0); CREATININE - SERUM 1.3 mg/dL (0.6-1.3); POTASSIUM - SERUM 4.5 mmol/L (3.5-5.1)
[2017-08-07 04:49] LABS: INR 1.77 (0.85-1.17); PROTIME 20.6 SECONDS (11.6-15.0)
[2017-08-07 07:00] VITALS: BP 97/61
[2017-08-07 08:00] VITALS: BP 114/45
--- NOTE | 2017-08-07 08:09 | NUR ---
awakes easily to verbal stimuli skin warm and dry bilateral lungs sounds clear. in cheerful mood breakfast served. no distress noted. very hard of hearing.
--- NOTE | 2017-08-07 10:16 | NUR ---
Nutrition Follow Up: Pt is eating 100% meal avg on a diabetic diet. He is receiving Glucerna TID. +BM 07/07/17. Labs reviewed. Meds noted including Lasix. Rec continue current diet. RD following.
[2017-08-07] MEDS ORDERED: ELIQUIS2.5 MG PO (10:46)
--- NOTE | 2017-08-07 11:36 | NUR ---
talked with son Dax on phone. patient is wanting to talk to his son but patient can not hear we have to write notes to communicate to patient. patient's son dax wants patient to return to [place] he states that they have mental health there and they will get him new hearing aides. and the patient will be happier with his . request patient be discharge back to [place]. dr. alvarez notified and orders received to discharge to [place]. [place] notified of discharge orders and report called to Nikole Muñoz.
--- NOTE | 2017-08-07 12:42 | NUR ---
Patient Name: JHONNY LARSON Encounter No: [id number] : 1935 Primary Insurance: MEDICARE A & B Planned Disposition: Assisted Living External Planned Provider: [facility] DCP follow-up note: DC order rec'd. Patient will return to assisted living at [facility]. [facility] will transport patient via facility van. Patient and family in agreement with discharge plan. No changes to plan. Case management will follow and assist as needed. Farhana Bob
--- NOTE | 2017-08-07 18:29 | DS ---
PATIENT:JHONNY LARSON :[birth year] MEDICAL RECORD: [id number] DISCHARGE SUMMARY ADMISSION DATE: 07/28/17 DISCHARGE DATE: 08/07/17 DATE OF ADMISSION: 07/28/2017 DATE OF DISCHARGE: 08/07/2017 ADMITTING DIAGNOSES: Dyspnea, type 2 diabetes, hyperlipidemia, Alzheimer's, elevated troponin, type 2 diabetes, coronary artery disease, sick sinus syndrome with a history of pacemaker placement. DISCHARGE DIAGNOSES: Pulmonary embolism, coronary artery disease, chronic congestive heart failure with systolic congestive heart failure with history EF of 20%, moderate pulmonary hypertension, hypertension, hyperlipidemia, status post pacemaker. BRIEF HISTORY AND HOSPITAL COURSE: Pleasant 82-year-old white male that presents with shortness of breath. He had a little bit of elevation of troponin, felt to probably be secondary to leak. CTA done reveals bilateral pulmonary embolism with pleural effusion, with subsequent improvement. He was placed in the ICU due to shortness of breath. He actually did well and improved, but was kept in the ICU because of his dementia and some worries about him wandering. He has improved. 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 He was followed by pulmonary and hematology. On the , he has been ambulating around the room with assistance. He has been ambulating in the unit with assistance and done well. He is on a low dose of Eliquis 2.5 mg b.i.d. Due to his age and dementia, he is going to be at higher risk; however, with his PEs, really not many other options, do not think he would do well with a filter. He was on Megace, I have stopped that. I have stopped his aspirin and stopped omega-3 fish oil. I will just leave him on the low-dose Eliquis. He is going to return back to [place], where he is a patient. He is anxious to get back there and see his . See daily progress notes and orders for specifics of his stay. See MAR for a complete list of discharge meds. TRANSINT:[id number] Voice Confirmation ID: [id number] DOCUMENT ID: [id number] PAYAL ESPITIA DO at 1829 CC: [id number] DICTATION DATE: 08/07/17 105 PADDED PRODUCTS INSPECTOR TRIMMER: 08/07/17 1403 DIS IN 08/07/17 [facility] [address] [place] [address]
--- NOTE | 2017-08-12 13:13 | EC ---
PATIENT:JHONNY LARSON DATE OF SERVICE: 07/28/17 SEX: M MEDICAL RECORD: [id number] DATE OF : [birth year] [facility] AGE OF PATIENT: 82 ADMISSION DATE: 07/28/17 REFERRING PHYSICIAN: INTERPRETING PHYSICIAN: GEETHA OTTO MD ECHOCARDIOGRAM REPORT ECHO CHARGES 5 ECHO LIMITED 1 DOPPLER ECHO COLOR FLOW 2 DOPPLER ECHO PULSE CLINICAL DIAGNOSIS: CHF ECHOCARDIOGRAPHIC MEASUREMENTS (adult normal given) AC root (d.<3.7cm) 0 cm LV Septum d (<1.2 cm> 0 cm Valve Excursion 0 cm LV Septum (systole) 0 cm Left Atria (s.<4.0cm> 0 cm LVPW d(<1.2cm) 0 cm RV (d.<2.3cm) 0 cm LVPW (sytole) 0 cm LV diastole(<5.6CM) 0 cm MV E-F(>70mm/sec) 0 cm LV systole 0 cm LVOT Diameter 0 cm MV exc.(>10mm) 0 cm Est.ejection fraction (50-75%) 0 % Pericardial Effusion N DOPPLER: LVIT 0 cm/sec A 0 cm/sec E 0 cm/sec LA 0 cm/sec RVSP 47.0 mmHg LVOT 0 cm/sec AOP1/2T 0 m/s Asc. Ao 0 cm/sec RVOT 0 cm/sec RA 0 cm/sec PA 0 cm/sec AV Gradient Peak 0 mmHg AV Mean 0 mmHg AV Area 0 cm MV Gradient Peak 0 mmHg MV Mean 0 mmHg MV Area 0 cm COMMENTS: LIMITED STUDY (2-D,COLOR,DOPPLER) COMPLETE ECHO DONE ON 05/17/17 AND A LIMITED ECHO DONE ON 06/28/17 Coremaker Pipe: 1 BELINDA JARAMILLOOE Side Seam Envelope Machine Operator: 3 Dr. Desai TAPE# PACS DATE OF SERVICE: 07/28/2017 Limited study. Includes 2-D and color flow imaging. Grossly, LVH appears present. LV internal dimensions appear dilated. LV is globally hypokinetic with reduced EF. Estimated EF appears to be 20%. Aortic valve appears tricuspid with adequate excursion and mild AI. Left atrium grossly appears dilated. Mitral valve shows no prolapse. Moderate MR. Right-sided chamber is grossly normal. Moderate TR. ECHOCARDIOGRAM REPORT [id number] JHONNY LARSON TRANSINT:[id number] Voice Confirmation ID: [id number] DOCUMENT ID: [id number] 08/02/2017 Edited to correct date of service, dmm. GEETHA OTTO MD at 1313 CC: [id number] DICTATION DATE: 07/29/17 1115 GEOTHERMAL INSTALLER: 07/29/17 1239 DIS IN 08/07/17 [place] [id number]
== END 2017-08-07 12:26 | disposition home or self-care (01) | DRG 291 ==
LOC: D.ER 09:04 → D.ICU 12:59 → D.M2 12:59 → D.ICU 07-30 00:25
PROVIDERS: Family Medicine; Internal Medicine Hematology & Oncology; Internal Medicine Pulmonary Disease; ADMIT Family Medicine
DX: I11.0 Hypertensive heart disease with heart failure (principal); I26.99 Other pulmonary embolism without acute cor pulmonale; F02.81 Dementia in other diseases classified elsewhere, unspecified severity, with behavioral disturbance; F05 Delirium due to known physiological condition; E46 Unspecified protein-calorie malnutrition; Z68.1 Body mass index [BMI] 19.9 or less, adult; D68.59 Other primary thrombophilia; E72.11 Homocystinuria; I50.23 Acute on chronic systolic (congestive) heart failure; E78.5 Hyperlipidemia, unspecified; I25.10 Atherosclerotic heart disease of native coronary artery without angina pectoris; K21.9 Gastro-esophageal reflux disease without esophagitis; E11.9 Type 2 diabetes mellitus without complications; I25.5 Ischemic cardiomyopathy; G30.9 Alzheimer's disease, unspecified; E87.6 Hypokalemia; E55.9 Vitamin D deficiency, unspecified; Z78.1 Physical restraint status; I27.20 Pulmonary hypertension, unspecified; I08.2 Rheumatic disorders of both aortic and tricuspid valves; M75.101 Unspecified rotator cuff tear or rupture of right shoulder, not specified as traumatic; W19.XXXA Unspecified fall, initial encounter; Z95.0 Presence of cardiac pacemaker

== ENCOUNTER 2017-08-11 22:31 | Inpatient (IN) | payer MEDICARE, BC ==
[~2017-08-11] VITALS: Ht 188 cm; Wt 59.0 kg
[~2017-08-11 22:31] MED LIST changes: +ELIQUIS2.5 MG PO; +LISINOPRIL10 MG PO; +MEGACE40 MG PO
[2017-08-11 23:48] LABS: BASOPHILS 0.2 % (0-2); EOSINOPHILS 1.2 % (0-7); HEMATOCRIT 40.3 % (42.0-54.0); HEMOGLOBIN 13.4 g/dL (13.5-17.5); IMMATURE GRANULOCYTES 0.2 % (0-5); LYMPHOCYTES 15.5 % (15-50); MCH 30.6 pg (26.0-34.0); MCHC 33.3 g/dL (31.0-37.0); MEAN PLATELET VOLUME 11.7 fL (7.4-10.4); MONOCYTES 5.4 % (2-11); NEUTROPHILS 77.5 % (40-80); PLATELET COUNT 259 10x3/uL (130-400); RBC 4.38 10x6/uL (4.20-6.10); RDW 15.2 % (11.5-14.5); WBC 13.7 10x3/uL (4.8-10.8)
[2017-08-12 00:05] LABS: ALBUMIN 3.2 g/dL (3.4-5.0); ANION GAP 18.8 mmol/L (8-16); BILIRUBIN - TOTAL 0.56 mg/dL (0.2-1.3); CALCIUM 9.2 mg/dL (8.5-10.1); CARBON DIOXIDE 22.6 mmol/L (21.0-32.0); CREATININE - SERUM 1.4 mg/dL (0.6-1.3); MAGNESIUM - SERUM 2.2 mg/dL (1.8-2.4); POTASSIUM - SERUM 4.4 mmol/L (3.5-5.1); PROTEIN - SERUM 6.9 g/dL (6.4-8.2)
[2017-08-12 00:21] LABS: TROPONIN-I 0.167 ng/mL (0.000-0.060)
[2017-08-12 01:48] VITALS: BP 133/57; BMI 16.7
--- NOTE | 2017-08-12 02:03 | NUR ---
CARSON, DRAWING SUPERVISOR, WAS CALLED AND INFORMED THERE WAS NO PAPERWORK TO SUPPORT THE DNR ORDER. THE PAPERWORK THAT WAS RECIEVED FROM [facility] STATES THAT HE WAS FULL CODE. [facility] WAS CALLED AT [phone] TO TRY AND CLARIFY THAT THE PATIENT WAS FULL CODE. NURSE INFORMED [facility] THAT A NURSE, CRISTEL, HAD CALL FOR THE SAME REASON AND WAS CALLING THE FAMILY TO VERIFY THE ORDER.
[2017-08-12] MEDS ORDERED: ASPIRIN81 MG PO (02:25)
[2017-08-12] MEDS ORDERED: FISH OIL 1,0001 CA1 PO (02:26)
[2017-08-12] MEDS ORDERED: LASIX40 MG PO (02:27)
[2017-08-12] MEDS ORDERED: MEGACE40 MG PO (02:27)
[2017-08-12] MEDS ORDERED: HUMALOG 30100 UNITS/ SC (02:27)
--- NOTE | 2017-08-12 04:07 | NUR ---
CLARIFIED WITH CARSON, WARP DYEING TENDER, THAT THE PATIENT WILL BE TREATED FULL CODE UNTIL THE P[facility] OR [facility] HAS VERIFIED THE DNR ORDER. NO ONE FROM THE HOSPITAL HAS BEEN ABLE TO REACH THE [facility] NOR ANYONE AT [facility] TO VERIFY DR DE LA CRUZ' DNR ORDER.
[2017-08-12 05:04] VITALS: BP 106/56
--- NOTE | 2017-08-12 06:45 | NUR ---
MADAY'S SON/POA CALLED AND STATED THAT HE IS DNR AND [employer] HAS THE PAPERWORK.
--- NOTE | 2017-08-12 09:11 | NUR ---
ASSESSMENT PER FLOW SHEET.PT WITHOUT DISTRES.HAS SOME CONFUSION.BRUISES AND SCABS NOTED MAINLY TO BILATERAL ARMS,BUT HAS SOME ON LEGS.REDNESS NOTED TO BUTTOCKS.FALL PREVENTION INITIATED WITH BLAIR,SOCK AND YELLOW BAND IN PLACE.DOOR OPEN TO MONITOR.
[2017-08-12 09:29] VITALS: BP 101/47
[2017-08-12 11:18] LABS: BASOPHILS 0 % (0-2); EOSINOPHILS 0.1 % (0-7); HEMATOCRIT 35.2 % (42.0-54.0); HEMOGLOBIN 13.7 g/dL (13.5-17.5); IMMATURE GRANULOCYTES 0.2 % (0-5); LYMPHOCYTES 4.5 % (15-50); MCH 37.1 pg (26.0-34.0); MCHC 38.9 g/dL (31.0-37.0); MCV 95.4 fL (80.0-100.0); MONOCYTES 4.7 % (2-11); NEUTROPHILS 90.5 % (40-80); PLATELET COUNT 222 10x3/uL (130-400); RBC 3.69 10x6/uL (4.20-6.10); RDW 16.1 % (11.5-14.5); WBC 12.9 10x3/uL (4.8-10.8)
[2017-08-12 13:17] VITALS: BP 104/40
[2017-08-12 15:23] VITALS: BP 102/44
--- NOTE | 2017-08-12 16:10 | NUR ---
1530-PT COMPLAINTS OF CHEST DISCOMFORT. HOB UP AT 45 DEGREES AND INSTRUCTED TO RELAX. DR OLSEN HERE. NEW ORDERS GIVEN
--- NOTE | 2017-08-12 21:00 | NUR ---
ASSISTED PT TO BATHROOM, STATED UNABLE TO USE URINAL. PT SLIGHTLY CONFUSED. BLAIR ALARM IN PLACE AND TURNED ON. INSTRUCTED PT TO USE CALL LIGHT FOR ASSISTANCE. BED IN LOWEST POSITION. WILL CONTINUE TO MONITOR.
--- NOTE | 2017-08-12 23:12 | NUR ---
193)BLAIR COKER IN PLACE.AND ON.VOIDED 300CC VIA URINAL.DISORIENTED TO TIME AND SITUATION.02 3L NC. DENIES ANY RESP. DISCOMFORT AT PRESENT TIME.WILL CONTINUE TO MONITOR FOR ANY CHGES. AND FOLLOW CURRENT PLAN OF CARE.
[2017-08-13] VITALS: BP 116/51
[2017-08-13 01:48] VITALS: BP 104/49
[2017-08-13 04:00] VITALS: BP 113/57
[2017-08-13 06:06] LABS: BASOPHILS 0.3 % (0-2); EOSINOPHILS 0.3 % (0-7); HEMATOCRIT 34.5 % (42.0-54.0); HEMOGLOBIN 11.8 g/dL (13.5-17.5); IMMATURE GRANULOCYTES 0.4 % (0-5); MCH 31.5 pg (26.0-34.0); MCHC 34.2 g/dL (31.0-37.0); MEAN PLATELET VOLUME 11.3 fL (7.4-10.4); MONOCYTES 7.7 % (2-11); NEUTROPHILS 84.3 % (40-80); PLATELET COUNT 180 10x3/uL (130-400); RBC 3.75 10x6/uL (4.20-6.10); RDW 15.8 % (11.5-14.5)
[2017-08-13 06:07] LABS: WBC 7.9 10x3/uL (4.8-10.8)
[2017-08-13 06:37] LABS: ALBUMIN 2.7 g/dL (3.4-5.0); BILIRUBIN - TOTAL 0.5 mg/dL (0.2-1.3); CALCIUM 9.1 mg/dL (8.5-10.1); CARBON DIOXIDE 27.5 mmol/L (21.0-32.0); CREATININE - SERUM 1.1 mg/dL (0.6-1.3); PROTEIN - SERUM 5.4 g/dL (6.4-8.2)
[2017-08-13 06:41] LABS: ANION GAP 12.1 mmol/L (8-16); POTASSIUM - SERUM 3.6 mmol/L (3.5-5.1)
--- NOTE | 2017-08-13 07:39 | NUR ---
REPORT RECEIVED FROM [employer] HOLD NURSE. CALL LIGHT IN REACH.
--- NOTE | 2017-08-13 08:50 | NUR ---
ASSESSMENT COMPLETED. BLAIR MAT ALARM ON. CALL LIGHT IN REACH. WILL CONTINUE WITH PLAN OF CARE.
--- NOTE | 2017-08-13 09:07 | NUR ---
LYING IN BED,WITHOUT DISTRESS.CALL LIGHT IN REACH
[2017-08-13 09:40] VITALS: BP 129/64
--- NOTE | 2017-08-13 10:48 | NUR ---
OT NOTE: PT REMAINS CONFUSED AND REQUIRES CONSTANT CUEING FOR IN ROOM MOBILITY. PERFORMED BED MOB WITH CGA; AMB TO BATHROOM WITH CGA; ABLE TO PERFORM TOILETING AND HYGIENE WITH SPV/CGA; AMB TO SINK TO PERFORM HAND WASHING..VC AND CGA REQUIRED; FEEDING ON EDGE OF BED WITH SET UP AND VC TO STAY ON TASK. EDUCATION FOR USE OF CALL BUTTON AND TO CALL NURSE IF NEEDING TO GET UP, HOWEVER, DUE TO DECREASED COGNITION/MEMORY, PT WILL LIKELY NOT REMEMBER.
--- NOTE | 2017-08-13 10:59 | NUR ---
AM MEDS ADMINISTERED. MORPHINE 2 MG SIVP. FSBS 257. WILL GIVE INSULIN CLOSED TO LUNCH. ALARM ON. CALL LIGHT IN REACH.
--- NOTE | 2017-08-13 12:04 | NUR ---
FSBS 257 SO HUMALOG 6 UNITS SUBQ TO RIGHT ARM.
[2017-08-13 14:14] VITALS: Ht 188 cm; Wt 59.0 kg
--- NOTE | 2017-08-13 14:50 | NUR ---
AMBULATED IN HALLWAY WITH PT. TOLERATED WELL.
--- NOTE | 2017-08-13 14:55 | NUR ---
ASSISTED TO BR AND BACK TO BED. HAD A BM.
--- NOTE | 2017-08-13 15:50 | NUR ---
ASSISTED TO BR AND BACK TO BED. HAD A BM.
--- NOTE | 2017-08-13 17:09 | NUR ---
MORPHINE 2 MG IV. 2 UNITS OF HUMALOG FOR BS OF 185. CALL LIGHT IN REACH.
[2017-08-13 17:46] VITALS: BP 118/53
--- NOTE | 2017-08-13 18:16 | NUR ---
NO CHANGES IN INITIAL ASSESSMENT. REFUSES SCDs. BLAIR MAT ALARM ON. CALL LIGHT IN REACH. WILL CONTINUE WITH PLAN OF CARE.
[2017-08-13 20:00] VITALS: BP 119/36
--- NOTE | 2017-08-13 20:00 | NUR ---
ASSESSMENT PER FLOWSHEET. IV PATENT LEFT WRIST SALINE LOCKED. BLAIR BED ALARM MAT ON SR UP X2 CALL LIGHT WITHIN REACH. DOOR OPENED.
--- NOTE | 2017-08-13 21:30 | NUR ---
MEDS GIVEN PER MAR. ZXPS=[phone] NO COVERAGE NEEDED.
--- NOTE | 2017-08-14 | NUR ---
REMAINS AWAKE WITH CONFUSION.
--- NOTE | 2017-08-14 01:45 | NUR ---
PATIENT PICKING HIS NOSE AND LEFT NARE STARTS TO BLEED. APPLIED PRESSURE NOSE STOPS BLEEDING. CLEANED PT UP.
[2017-08-14 04:00] VITALS: BP 116/58
[2017-08-14 06:36] LABS: ALBUMIN 2.5 g/dL (3.4-5.0); ANION GAP 8.9 mmol/L (8-16); BILIRUBIN - TOTAL 0.6 mg/dL (0.2-1.3); CARBON DIOXIDE 31.9 mmol/L (21.0-32.0); CREATININE - SERUM 1.3 mg/dL (0.6-1.3); POTASSIUM - SERUM 3.8 mmol/L (3.5-5.1); PROTEIN - SERUM 5.8 g/dL (6.4-8.2)
--- NOTE | 2017-08-14 07:04 | NUR ---
REPORT RECEIVED FROM [employer] NURSE. CALL LIGHT IN REACH.
--- NOTE | 2017-08-14 07:48 | NUR ---
PATIENT IN BED WITH IV INTACT. SITTING UP WITH EYES OPEN. NO COMPLAINTS AT THIS TIME. DENIES ANY NEEDS. CALL LIGHT WITHIN REACH.
[2017-08-14 07:57] LABS: BASOPHILS 0.2 % (0-2); EOSINOPHILS 0.6 % (0-7); HEMATOCRIT 31.3 % (42.0-54.0); HEMOGLOBIN 11.2 g/dL (13.5-17.5); IMMATURE GRANULOCYTES 0.2 % (0-5); LYMPHOCYTES 8.3 % (15-50); MCH 33.2 pg (26.0-34.0); MCHC 35.8 g/dL (31.0-37.0); MCV 92.9 fL (80.0-100.0); MEAN PLATELET VOLUME 11.1 fL (7.4-10.4); MONOCYTES 5.4 % (2-11); NEUTROPHILS 85.3 % (40-80); PLATELET COUNT 197 10x3/uL (130-400); RBC 3.37 10x6/uL (4.20-6.10); RDW 15.9 % (11.5-14.5); WBC 6.6 10x3/uL (4.8-10.8)
[2017-08-14 08:29] VITALS: BP 130/75
--- NOTE | 2017-08-14 08:51 | NUR ---
ASSESSMENT COMPLETED. AM MEDS ADMINISTERED. MORPHINE 2 MG SIVP. REFUSES SCDs. BED ALARM ON. CALL LIGHT IN REACH. WILL CONTINUE WITH PLAN OF CARE.
--- NOTE | 2017-08-14 10:20 | NUR ---
PHYSICAL THERAPY IN ROOM TO PUT PATIENT BACK IN BED AT THIS TIME. CALL LIGHT IN REACH.
--- NOTE | 2017-08-14 10:47 | NUR ---
PT SPO2 89 ON 3L NC. APPLIED OXIMIZER TO PT SPO2 NOW 97
--- NOTE | 2017-08-14 10:53 | NUR ---
OT NOTE: PT UP IN CHAIR; AMB TO SINK AND PERFORMED HAND WASHING WITH CGA FOR BALANCE AND VC. UE AROM EXS WHILE IN CHAIR TO INCLUDE ALL JOINTS
--- NOTE | 2017-08-14 11:33 | NUR ---
PATIENT IN BED EYES CLOSED RESTING QUIETLY AT THIS TIME. NO COMPLAINTS, OR SIGNS OF DISTRESS. CALL LIGHT WITHIN REACH.
[2017-08-14 12:26] VITALS: BP 109/46
--- NOTE | 2017-08-14 13:57 | NUR ---
IV TO LEFT WRIST WITH REDNESS, SWELLING, AND LEAKAGE. DC'D WITH TIP INTACT. RESITED TO LEFT FOREARM WITH 22 GA X2 STICK. MORPHINE 2 MG SIVP. CALL LIGHT IN REACH.
--- NOTE | 2017-08-14 14:24 | NUR ---
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 PATIENT IS A RESIDENT THERE AND WILL RETURN AT DISCHARGE. PATIENT DOES NOT USE ANY DME AT FACILTY PER NURSE. PATIENT DOES HAVE HIS SUGARS CHECKED 3X DAILY. PATIENTS PCP IS DR. DELGADO AND PHARMACY IS [facility]. PATIENTS SON (JEYSON) LIVES IN [place]. CM WILL CONTINUE TO FOLLOW PATIENT WITH D/C NEEDS AND PLANS. PCP DR. DELGADO [facility]- [phone] JEYSON (JOSELYN) [phone] [employer] Operations Intelligence Chief: Tashia Burgos Is the patient Alert and Oriented? No 0 * How many steps to enter\exit or inside your home? 0 0 * PCP DR. DELGADO 0 * Pharmacy [facility] 0 * Preadmission Environment Assisted Living 0 * Facility Name [facility] 0 * ADLs Independent 0 * Equipment Glucometer 0 * List name and contact numbers for known caregivers / representatives who currently or will assist patient after discharge: JEYSON (JOSELYN) [place] [phone] 0 * Community resources currently utilized Assisted Living 0 * Please name any agencies selected above. [facility] 0 * Additional services required to return to the preadmission environment? Yes 0 * Can the patient safely return to the preadmission environment? Yes 0 * Has this patient been hospitalized within the prior 30 days at any hospital? Yes 0 Grand Total: 0
[2017-08-14 15:50] VITALS: BP 116/57
--- NOTE | 2017-08-14 15:56 | NUR ---
RESTING WITH EYES CLOSED. RESP EVEN AND UNLABORED. CALL LIGHT IN REACH.
--- NOTE | 2017-08-14 17:40 | NUR ---
LASIX AND MORPHINE IVP. BLOOD SUGAR 66. DINNER TRAY AT BEDSIDE. CALL LIGHT IN REACH.
--- NOTE | 2017-08-14 18:49 | NUR ---
NO CHANGES IN INITIAL ASSESSMENT. STILL REFUSES SCDs. BLAIR MAT ALARM ON. CALL LIGHT IN REACH. WILL CONTINUE WITH PLAN OF CARE.
--- NOTE | 2017-08-14 19:53 | NUR ---
OT NOTE: PT COMPLETED BED MOB WITH MIN/MOB. PT COMPLETED HYGIENE TASK WITH MIN/MOD. PT COMPLETED BUE AROM EXS FOR INCREASED AX TOLERANCE. THANK YOU, PAT ROSARIO/Gianluca
[2017-08-14 20:00] VITALS: BP 113/68
--- NOTE | 2017-08-14 20:00 | NUR ---
ASSESSMENT PER FLOWSHEET. IV PATENT LEFT FOREARM SALINE LOCK TELM. SHOWS SR 84. O2 4 L/M PER NC. CONFUSED BLAIR BED ALARM MAT ON SR UP X2 CALL LIGHT WITHIN REACH. PATIENT OUT OF BED IN HALLWAY HOLDING HIS PENIS. PT PULLED OUT HIS IV. ASSISTED BACK TO ROOM UP IN CHANIR AT BEDSIDE. CLEANED UP PATIENT AND LINENS CHANGED PT UP IN CHAIR AT BEDSIDE. RESITED IV TO RT ARM #22G ANGIOCATH X1 ATTEMPT. ASSISTED BACK TO BED. LARGE SIZE HERNIA NOTED TO LEFT PELVIS AREA.
--- NOTE | 2017-08-14 22:00 | NUR ---
EYES CLOSED RESPIRATIONS WITH EASE AND UNLABORED. O2 ON AT 4L/M PER NC.BLAIR BED ALARM MAT ON.
[2017-08-15] VITALS: BP 123/61
--- NOTE | 2017-08-15 | NUR ---
BLAIR ALARM SOUNDING PT SITTING ON SIDE OF BED VOIDING IN URINAL.
--- NOTE | 2017-08-15 02:39 | NUR ---
RESTING IN BED SR UP X2 CALL LIGHT WITHIN REACH.
[2017-08-15 04:00] VITALS: BP 124/62
[2017-08-15 05:38] LABS: ALBUMIN 2.7 g/dL (3.4-5.0); BILIRUBIN - TOTAL 0.45 mg/dL (0.2-1.3); CALCIUM 9.5 mg/dL (8.5-10.1); CARBON DIOXIDE 30.8 mmol/L (21.0-32.0); CREATININE - SERUM 1.2 mg/dL (0.6-1.3); POTASSIUM - SERUM 3.8 mmol/L (3.5-5.1); PROTEIN - SERUM 6.3 g/dL (6.4-8.2)
[2017-08-15 05:39] LABS: BASOPHILS 0.2 % (0-2); EOSINOPHILS 0.2 % (0-7); HEMATOCRIT 37.6 % (42.0-54.0); HEMOGLOBIN 12.5 g/dL (13.5-17.5); IMMATURE GRANULOCYTES 0.2 % (0-5); LYMPHOCYTES 6.9 % (15-50); MCH 29.8 pg (26.0-34.0); MCHC 33.2 g/dL (31.0-37.0); MEAN PLATELET VOLUME 11.6 fL (7.4-10.4); MONOCYTES 9.3 % (2-11); NEUTROPHILS 83.2 % (40-80); PLATELET COUNT 191 10x3/uL (130-400); RBC 4.19 10x6/uL (4.20-6.10); RDW 14.9 % (11.5-14.5); WBC 5.5 10x3/uL (4.8-10.8)
[2017-08-15 05:40] LABS: MCV 89.7 fL (80.0-100.0)
--- NOTE | 2017-08-15 07:15 | NUR ---
REPORT RECEIVED FROM TEMPLATE MAKER NURSE. CALL LIGHT IN REACH.
[2017-08-15 08:08] VITALS: BP 119/65
--- NOTE | 2017-08-15 08:20 | NUR ---
ASSESSMENT COMPLETED. REFUSES SCDs. BLAIR MAT ALARM ON. CALL LIGHT IN REACH. WILL CONTINUE WITH PLAN OF CARE.
--- NOTE | 2017-08-15 09:42 | NUR ---
AM MEDS ADMINISTERED. CALL LIGHT IN REACH.
--- NOTE | 2017-08-15 10:20 | NUR ---
IN CHAIR PER PHYSICAL THERAPY. TOLERATING WELL.
--- NOTE | 2017-08-15 10:29 | NUR ---
OT NOTE: PERFORMED UE AND LE EXS WHILE SITTING UP IN CHAIR; AMB IN ROOM TO SINK TO PERFORM SINK HYGIENE; AMB TO TOILET BUT DID NOT NEED TO GO TO BATHROOM. PT DOING WELL FUNCTIONALLY..REUQIRES EXT VERBAL CUES DUE TO DECREASED COGNITION
--- NOTE | 2017-08-15 11:30 | NUR ---
VERBAL PHONE CONSENT OBTAINED FROM SON FOR TOMORROW'S SURGERY.
[2017-08-15 12:22] VITALS: BP 116/47
--- NOTE | 2017-08-15 12:51 | NUR ---
FSBS 206 SO 4 UNITS HUMALOG SUBQ TO LEFT ARM. MORPHINE IVP AND MEROPENEM IVPB. CALL LIGHT IN REACH.
--- NOTE | 2017-08-15 13:46 | NUR ---
NUTRITION F/U PT VISIT. TOLERATING REG DIET, 75% INTAKE RECENT MEALS, GLUCERNA SHAKE. WILL CONTINUE TO PROVIDE DIET, SHAKE. MONITOR PO INTAKE. RD FOLLOWING
--- NOTE | 2017-08-15 14:55 | NUR ---
RESTING WITH EYES CLOSED. RESP EVEN AND UNLABORED. CALL LIGHT IN REACH.
[2017-08-15 16:01] VITALS: BP 112/56
--- NOTE | 2017-08-15 16:10 | NUR ---
DR. OLSEN IN ROOM SPEAKING WITH PATIENT.
--- NOTE | 2017-08-15 18:28 | NUR ---
RESTING QUIETLY IN BED. BED ALARM IN USE. DENIES ANY NEEDS AT THIS TIME.
[2017-08-15 20:00] VITALS: BP 137/68
--- NOTE | 2017-08-15 20:02 | NUR ---
OT NOTE: PT COMPLETED BED MOBILITY WITH SUPV/CGA. PT COMPLETED DYNAMIC SITTING BALANCE WITH SBA/SPV. PT COMPLETED BUE AROM EXS FOR INCREASED AX TOLERANCE. THANK YOU, PAT ROSARIO/Gianluca
[2017-08-16 00:43] VITALS: BP 135/74
[2017-08-16 04:00] VITALS: BP 131/62
[2017-08-16 06:14] LABS: BASOPHILS 0.2 % (0-2); EOSINOPHILS 0.2 % (0-7); HEMATOCRIT 38.4 % (42.0-54.0); HEMOGLOBIN 12.6 g/dL (13.5-17.5); IMMATURE GRANULOCYTES 0.2 % (0-5); MCH 28.7 pg (26.0-34.0); MCHC 32.8 g/dL (31.0-37.0); MCV 87.5 fL (80.0-100.0); MEAN PLATELET VOLUME 11.8 fL (7.4-10.4); MONOCYTES 9.7 % (2-11); NEUTROPHILS 83.7 % (40-80); PLATELET COUNT 186 10x3/uL (130-400); RBC 4.39 10x6/uL (4.20-6.10); RDW 14.6 % (11.5-14.5); WBC 4.6 10x3/uL (4.8-10.8)
[2017-08-16 06:44] LABS: ALBUMIN 2.4 g/dL (3.4-5.0); ANION GAP 10.8 mmol/L (8-16); BILIRUBIN - TOTAL 0.41 mg/dL (0.2-1.3); CALCIUM 8.9 mg/dL (8.5-10.1); CREATININE - SERUM 1.3 mg/dL (0.6-1.3); POTASSIUM - SERUM 3.8 mmol/L (3.5-5.1); PROTEIN - SERUM 5.9 g/dL (6.4-8.2)
--- NOTE | 2017-08-16 07:15 | NUR ---
REPORT RECEIVED FROM [employer] NURSE. CALL LIGHT IN REACH.
--- NOTE | 2017-08-16 08:14 | NUR ---
ASSESSMENT COMPLETED. NITRO PATCH AND NASAL SPRAYS ADMINISTERED. MORPHINE IVP. REFUSES SCDs. BLAIR MAT ALARM ON. CALL LIGHT IN REACH. WILL CONTINUE WITH PLAN OF CARE.
[2017-08-16 08:23] VITALS: BP 110/58
--- NOTE | 2017-08-16 08:37 | NUR ---
PREOP MMEDS ADMINISTERED. TO OR VIA BED.
--- NOTE | 2017-08-16 10:05 | NUR ---
STILL IN OR AT THIS TIME.
[2017-08-16 11:30] VITALS: BP 104/55
--- NOTE | 2017-08-16 11:46 | NUR ---
RECEIVED BACK TO ROOM FROM RR VIA BED. O2 @ 3L PER NC. FSBS WNL SO INSULIN HELD. IV ABX INITIATED. CALL LIGHT IN REACH. ALARM ON.
--- NOTE | 2017-08-16 12:12 | NUR ---
SALINE NASAL MIST ADMINISTERED PER ORDER. CALL LIGHT IN REACH.
[2017-08-16 12:34] VITALS: BP 104/55
--- NOTE | 2017-08-16 13:05 | OP ---
PATIENT NAME: JHONNY LARSON MEDICAL RECORD: [id number] :37 LOCATION:[id number] ADMISSION DATE:08/12/17 SURGEON: IVONNE HUTCHINS MD DATE OF OPERATION: 08/16/2017 SURGEON: Ivonne Hutchins MD PREOPERATIVE DIAGNOSIS: Left inguinal hernia. POSTOPERATIVE DIAGNOSIS: Left inguinal hernia. PROCEDURE PERFORMED: Left inguinal hernia repair with mesh. ANESTHESIA: Monitored anesthesia care with local. COMPLICATIONS: None. SPECIMENS: Hernia sac. ESTIMATED BLOOD LOSS: 20 cc. Case was clean. OPERATIVE COURSE: After consent was obtained, the patient was taken to the operating room and placed in the supine position on the operating table. Next, general anesthesia was given via endotracheal intubation, after a timeout was performed to confirm the correct patient and procedure. The left inguinal region was prepped and draped in typical sterile fashion. A 30 cc of local anesthetic were used for local anesthetic and an ilioinguinal nerve block was performed 2 fingerbreadths medial and 1 fingerbreadth inferior to the ASIS. External landmarks were identified. A transverse skin incision was made with a 15 blade scalpel. Dissection continued to the level of the external oblique fascia using electrocautery. An additional local anesthetic was injected below the external oblique fascia. The external oblique fascia was opened with a 15 blade scalpel. The remaining portion of the external oblique was opened medially through the external ring using Metzenbaum scissors. It was opened laterally towards the ASIS using Metzenbaum scissors. Flaps were created using blunt dissection. Next, the cord structures were dissected off the pubic tubercle using blunt dissection. A Magdiel dressing was placed. The patient had both a large indirect and direct hernias. The indirect hernia sac was dissected off the cord structures. It was in the anterior medial position. The hernia sac was opened. There was no bowel content inside. It was high ligated with a 2-0 Vicryl suture. The hernia sac was excised above the LigaSure and sent for permanent pathology. The direct hernia space was then closed. The conjoint tendon was sewn to the inguinal ligament using 0 Vicryl suture loosely recreating the internal ring. Next, a Andrew hernia repair was performed using the ProGrip mesh. The mesh was secured to the pubic tubercle medially using 2-0 Prolene suture. It was tacked with intermittent 2-0 Prolene sutures along the inguinal ligament. Again, the mesh was used to loosely recreate the internal ring. The remaining portion of the mesh was secured to the conjoint tendon superiorly and once with the mesh lying appropriately, the cord structures were again checked. Magdiel drain was removed. The external oblique fascia was reapproximated using 3-0 Vicryl suture. Yara's fascia was then reapproximated using 3-0 Vicryl suture. The skin was closed with 4-0 Stratafix, Mastisol and Steri-Strips. At the end of the case, all needle and instrument OPERATIVE REPORT [id number] JHONNY LARSON counts were correct. No complications occurred. The patient was transferred to the PACU in stable condition. TRANSINT:[id number] Voice Confirmation ID: [id number] DOCUMENT ID: [id number] IVONNE HUTCHINS MD at 1305 CC: [id number] DICTATION DATE: 08/16/17 1103 OBSERVATION NURSE: 08/16/17 1228 ADM IN [facility] [address] [place] [address]
[2017-08-16] MEDS ORDERED: LEVAQUIN750 MG PO (13:37)
[2017-08-16] MEDS ORDERED: SALINE NASAL SP45 ML NASAL (13:39)
[2017-08-16] MEDS ORDERED: MUCINEX600 MG PO (13:39)
[2017-08-16] MEDS ORDERED: TESSALON PERLE100 MG PO (13:39)
[2017-08-16] MEDS ORDERED: ELIQUIS2.5 MG PO (13:39)
[2017-08-16] MEDS ORDERED: AFRIN NASAL SPR15 ML NASAL (13:40)
[2017-08-16] MEDS ORDERED: GLUCOPHAGE1000 MG PO (13:40)
--- NOTE | 2017-08-16 14:55 | NUR ---
ASSISTED TO BR. PATIENT VOIDED 200 CC AND ALSO HAD A SMALL FORMED BOWEL MOVEMENT.
[2017-08-16 16:29] VITALS: BP 105/38
--- NOTE | 2017-08-16 16:50 | NUR ---
RN STATED PATIENT PULLED IV OUT ON ACCIDENT. TIP WAS INTACT.
--- NOTE | 2017-08-16 17:17 | NUR ---
PATIENT RESTING IN BED. NO COMPLAINTS AT PRESENT. TO BE DISCHARGED THIS EVENING.CALL LIGHT IN REACH
--- NOTE | 2017-08-16 17:24 | NUR ---
REPORT CALLED TO [facility].
--- NOTE | 2017-08-16 18:49 | NUR ---
CASTILLO'D TO [place] [employer] VIA WC WITH [employer].
--- NOTE | 2017-08-17 18:21 | NUR ---
LATE ENTRY 08/16/17 1300 PATIENT S/P LEFT INGUINAL HERNIA REPAIR W/ MESH. DR HUTCHINS HAD STATED HE COULD RETURN TO [facility] TODAY. PRIMARY NURSE, JACINTO, WAS TO CALL REPORT. [facility] ARRANGED TRANSPORTATION. JANEL TELEPHONED [facility] AT [phone]. SPOKE WITH [facility]. [facility] [phone] FAX / [phone] PHONE. JANEL FAXED CLINICAL INFORMATION.
--- NOTE | 2017-08-23 14:14 | CN ---
PATIENT NAME:JHONNY ZHENG MEDICAL RECORD: [id number] : 37 LOCATION:[facility] ADMIT DATE: 08/12/17 ACCOUNT: [id number] CONSULTING PHYSICIAN: CONCHA CHANG MD REFERRING PHYSICIAN: FREDI GOMEZ MD DATE OF CONSULTATION: 08/12/2017 DIAGNOSES: 1. Unstable angina. 2. Coronary artery disease. 3. Cardiomyopathy. 4. Congestive heart failure, chronic systolic dysfunction. 5. Pneumonia. 6. Recent pulmonary embolus. 7. Abnormal ECG. HISTORY OF PRESENT ILLNESS: Mr. Zheng presents with shortness of breath who felt to have pneumonia, also diagnosed with recent pulmonary emboli. He had a recent hospitalization for shortness of breath. At that time, an echocardiogram was done, his ejection fraction was in the 20% range. He did not have any chest pain or chest discomfort and now he is complaining of a chest tightness. He has new T-wave inversions on his EKG. His troponin is only very minimally elevated. He continues to have the discomfort. Heart rate is in the 80s. His systolic blood pressure is in the 100-110 range. PHYSICAL EXAMINATION: GENERAL APPEARANCE: Well-nourished, well-developed, appears stated age. Level of distress, comfortable. PSYCHIATRIC: Mental status, alert, normal affect. Orientation, oriented to time, place and person. EYES: Lids and conjunctiva, noninjected. No discharge, no pallor. ENT: Lips, teeth, gums, normal dentition. Oropharynx, no cyanosis, no pallor. NECK: Carotid arteries, bilateral normal upstroke, no bruits, no thrills. JUGULAR VEINS: No jugular venous pressure or distention. CERVICAL LYMPH NODES: Nontender, nonenlarged. THYROID: Not enlarged. Nontender. No nodules. LUNGS: Respiratory effort, unlabored. CHEST: Normal curvature. No thoracic deformity. No chest wall tenderness. Percussion, resonant. Auscultation, clear. No wheezes, no rales, no rhonchi. CARDIOVASCULAR: Precordial exam, nondisplaced. No heaves or pericardial thrills. Rate and rhythm, regular. Heart sounds, normal S1, normal S2. No S3, no gallop, no rub. Systolic murmur, not heard. Diastolic murmur, not heard. EXTREMITIES: No cyanosis, no edema. Peripheral pulses, full and equal in all extremities, except as noted. No bruits appreciated. ABDOMEN: Soft, nondistended. Normal aorta. No bruit. Nontender. No masses. Liver, nontender, no hepatomegaly. Spleen, nontender, no splenomegaly. MUSCULOSKELETAL: No joint tenderness. No joint swelling. No erythema. NEUROLOGICAL: Normal gait, normal strength, normal tone. SKIN: Warm and dry. REVIEW OF SYSTEMS: The patient reports easy bruising but reports no swollen glands. The patient reports no fever, no night sweats, no significant weight gain, no significant weight loss. No significant exercise tolerance. The patient reports no dry eyes, no irritation, no vision change. Patient reports no difficulty hearing and no ear pain. Patient reports no frequent nose bleeds CONSULT REPORT [id number] ZHENG,ROMMIE or nose and sinus problems. Patient reports on arm pain on exertion. No shortness of breath while lying down. No history of heart murmur. Patient reports no cough, no wheezing or coughing up blood. Patient reports no abdominal pain, no vomiting. Normal appetite. No diarrhea and not vomiting blood. No nausea and no constipation. Patient reports no incontinence. No difficulty urinating. No hematuria. No increased frequency. Patient reports no muscle aches. No weakness, no arthralgias, no back pain. No swelling of the extremities. Patient reports no abnormal mole, no jaundice, no rashes. Reports no loss of consciousness. No weakness and no numbness. No seizures, dizziness, or headaches. The patient reports no depression, no sleep disturbance, feeling safe in a relationship and no alcohol abuse. Patient reports on fatigue. Reports no runny nose or sinus pressure. No itching, no hives, and no frequent sneezing. OVERALL IMPRESSION: Chest discomfort, most likely this is hemodynamically significant coronary artery disease and angina. We will optimize medical therapy with nitrates, beta-agnieszka, already on aspirin. We will see if medical therapy can make him pain free and avoid cardiac catheterization with his multiple other medical problems. TRANSINT:[id number] Voice Confirmation ID: [id number] DOCUMENT ID: [id number] CONCHA CHANG MD at 1414 CC: [id number] DICTATION DATE: 08/12/17 1533 ANALYSIS CONSULTANT: 08/12/17 1555 DIS IN 08/16/17 [facility] [address] [place] [address]
== END 2017-08-16 18:49 | disposition home or self-care (01) | DRG 987 ==
LOC: D.ER 22:31 → D.MS 08-12 00:40
PROVIDERS: Emergency Medicine; Surgery; ADMIT Emergency Medicine
PROC: 0YU60JZ Supplement Left Inguinal Region with Synthetic Substitute, Open Approach (ICD-10-PCS; principal; 2017-08-16 11:00)
DX: I50.23 Acute on chronic systolic (congestive) heart failure (principal); J18.9 Pneumonia, unspecified organism; I25.110 Atherosclerotic heart disease of native coronary artery with unstable angina pectoris; E46 Unspecified protein-calorie malnutrition; Z68.1 Body mass index [BMI] 19.9 or less, adult; J44.1 Chronic obstructive pulmonary disease with (acute) exacerbation; I42.9 Cardiomyopathy, unspecified; I11.0 Hypertensive heart disease with heart failure; R09.1 Pleurisy; Z95.0 Presence of cardiac pacemaker; I27.20 Pulmonary hypertension, unspecified; I08.0 Rheumatic disorders of both mitral and aortic valves; E55.9 Vitamin D deficiency, unspecified; F03.90 Unspecified dementia, unspecified severity, without behavioral disturbance, psychotic disturbance, mood disturbance, and anxiety; E11.21 Type 2 diabetes mellitus with diabetic nephropathy

== ENCOUNTER 2017-08-19 12:31 | Emergency (ER) | payer MEDICARE, BC ==
[2017-08-13 14:14] VITALS: BMI 16.7
[~2017-08-19 12:31] MED LIST changes: +AFRIN NASAL SPR15 ML NASAL; +ASPIRIN81 MG PO; +HUMALOG 30100 UNITS/ SC; +LASIX40 MG PO; +LEVAQUIN750 MG PO; +MUCINEX600 MG PO; +SALINE NASAL SP45 ML NASAL; +TESSALON PERLE100 MG PO
[2017-08-19 13:07] LABS: BASOPHILS 0.2 % (0-2); EOSINOPHILS 0.2 % (0-7); HEMATOCRIT 38.8 % (42.0-54.0); HEMOGLOBIN 12.7 g/dL (13.5-17.5); IMMATURE GRANULOCYTES 0.2 % (0-5); LYMPHOCYTES 11.7 % (15-50); MCH 27.9 pg (26.0-34.0); MCHC 32.7 g/dL (31.0-37.0); MCV 85.3 fL (80.0-100.0); MEAN PLATELET VOLUME 10.3 fL (7.4-10.4); MONOCYTES 10.3 % (2-11); NEUTROPHILS 77.4 % (40-80); PLATELET COUNT 195 10x3/uL (130-400); RBC 4.55 10x6/uL (4.20-6.10); RDW 14.2 % (11.5-14.5)
[2017-08-19 13:23] LABS: ALBUMIN 2.6 g/dL (3.4-5.0); ANION GAP 9.9 mmol/L (8-16); BILIRUBIN - TOTAL 0.48 mg/dL (0.2-1.3); CARBON DIOXIDE 32.8 mmol/L (21.0-32.0); CREATININE - SERUM 1.6 mg/dL (0.6-1.3); POTASSIUM - SERUM 3.7 mmol/L (3.5-5.1); PROTEIN - SERUM 6.3 g/dL (6.4-8.2)
[2017-08-19 13:38] LABS: TROPONIN-I 0.06 ng/mL (0.000-0.060)
== END 2017-08-19 17:43 | disposition home or self-care (01) ==
LOC: D.ER 12:31
PROVIDERS: Family Medicine
DX: R06.00 Dyspnea, unspecified (principal); I44.7 Left bundle-branch block, unspecified

== ENCOUNTER 2017-08-21 12:32 | Emergency (ER) | payer MEDICARE, BC ==
[2017-08-13 14:14] VITALS: BMI 16.7
== END 2017-08-21 17:17 | disposition home or self-care (01) ==
LOC: D.ER 12:32
DX: R06.00 Dyspnea, unspecified (principal); E11.9 Type 2 diabetes mellitus without complications; I10 Essential (primary) hypertension; I44.7 Left bundle-branch block, unspecified